=== PATIENT | female | born 1940 | race Caucasian/White ===

== ENCOUNTER 2019-02-04 14:44 | Inpatient (IN) | payer MEDICARE, OTHER | END 2019-02-09 12:05 | disposition home or self-care (01) | LOC: TELE-WESTW 20:47 → ER 14:44 → TELE 20:05 → TELE-WESTW 20:49 | DX: I21.4 Non-ST elevation (NSTEMI) myocardial infarction (principal); I50.43 Acute on chronic combined systolic (congestive) and diastolic (congestive) heart failure; N39.0 Urinary tract infection, site not specified; E44.1 Mild protein-calorie malnutrition; R07.2 Precordial pain; I25.10 Atherosclerotic heart disease of native coronary artery without angina pectoris; Z95.1 Presence of aortocoronary bypass graft; I11.0 Hypertensive heart disease with heart failure ==

== ENCOUNTER 2019-02-15 10:00 | Inpatient (IN) | payer MEDICARE ==
[~2019-02-15] VITALS: Ht 157.5 cm; Wt 56.9 kg
[2019-02-15] MEDS ORDERED: FUROSEMIDE 20 MG/2 ML VIAL IV ONE ×2 (10:45→22:00)
[2019-02-15 10:49] LABS: Basophils # (auto) 0 uL; Eosinophils # (auto) 0 uL; Monocytes # (auto) 0.6 uL; White Blood Cell 5.9 10^3/uL (4.4-10.8)
[2019-02-15 10:50] LABS: Basophils % (auto) 0.6 % (0.0-2.0); Eosinophils % (auto) 0.4 % (0.0-7.0); Hematocrit 29.3 % (36.0-46.0); Hemoglobin 9.5 g/dL (12.2-16.2); Lymphocytes # (auto) 1.4 uL; Lymphocytes % (auto) 23.1 % (10.0-50.0); Mean Corpuscular Hemoglobin 26.4 pg (28.0-32.0); Mean Corpuscular Hgb Conc. 32.3 g/dL (32.0-36.0); Mean Corpuscular Volume 81.7 fL (80.0-100.0); Monocytes % (auto) 9.8 % (0.0-12.0); Neutrophils # (auto) 3.9 uL; Neutrophils % (auto) 66.1 % (37.0-80.0); Nucleated Red Blood Cells % 0.2 %; Platelet Count (auto) 249 10^3/uL (140-450); Red Blood Cells 3.58 10^6/uL (4.0-5.20); Red Cell Distribution Width 17.7 % (11.8-14.3)
[2019-02-15 11:09] LABS: Calcium 8.2 mg/dL (8.5-10.1); Magnesium 2.3 mg/dL (1.6-2.6)
[2019-02-15 11:16] LABS: BUN/Creatinine Ratio 20.2; Bilirubin, Total 0.4 mg/dL (0.2-1.0); Total Protein 8.1 g/dL (6.4-8.2)
[2019-02-15] MEDS ORDERED: ACETAMINOPHEN 325 MG TAB PO PRN (13:00)
[2019-02-15] MEDS ORDERED: MORPHINE SULF INJ 2 MG/ML SYRINGE 1ML IV PRN ×2 (13:00)
[2019-02-15] MEDS ORDERED: ONDANSETRON HCL 4 MG/2 ML VIAL IV PRN (13:00)
[2019-02-15] MEDS ORDERED: NITROGLYCERIN 0.4 MG SL TAB SL PRN (13:00)
[2019-02-15] MEDS ORDERED: CARVEDILOL 3.125 MG TAB PO SCH (17:45)
[2019-02-15 18:36] VITALS: BP 99/64
[2019-02-15] MEDS ORDERED: POTA20TA53 PO (19:03)
[2019-02-15] MEDS ORDERED: FURO20TA3 PO (19:03)
[2019-02-15 19:05] VITALS: BP 99/64
--- NOTE | 2019-02-15 19:10 | NUR ---
Opening Shift Note Received change of shift report from day shift RN Jose Miguel. Assumed care of pt, awake and alert x4, sitting up in bed watching television. No S/S of distress or SOB, no pain noted or reported at this time. Respirations are even and unlabored. Updated pt. on POC and instructed to call for assistance as needed, pt. verbalized understanding. Bed locked in lowest position, side rails up x2, call light within reach. Will continue to monitor q1hr and PRN.
[2019-02-15 20:52] LABS: Urine Bacteria FEW /hpf (None Seen); Urine Blood 2+ /uL (Negative); Urine Hyaline Cast FEW /lpf (0 - 2); Urine Mucus FEW (None Seen); Urine Specific Gravity 1.012 (1.001-1.035); Urine WBC Clumps PRESENT /hpf (None Seen)
[2019-02-15 20:53] LABS: Urine WBC 400 /hpf (0 - 5)
[2019-02-15 22:00] VITALS: BP 111/68
[2019-02-15] MEDS ORDERED: POTASSIUM CHL 20 Meq TABLET PO ONE (22:00)
[2019-02-16 05:30] VITALS: BP 113/77
[2019-02-16 06:58] LABS: Basophils # (auto) 0 uL; Basophils % (auto) 0.8 % (0.0-2.0); Eosinophils # (auto) 0 uL; Eosinophils % (auto) 0.8 % (0.0-7.0); Hematocrit 28.3 % (36.0-46.0); Hemoglobin 9.2 g/dL (12.2-16.2); Lymphocytes # (auto) 1.4 uL; Lymphocytes % (auto) 26.3 % (10.0-50.0); Mean Corpuscular Hemoglobin 26.3 pg (28.0-32.0); Mean Corpuscular Hgb Conc. 32.3 g/dL (32.0-36.0); Mean Corpuscular Volume 81.3 fL (80.0-100.0); Monocytes # (auto) 0.5 uL; Monocytes % (auto) 8.9 % (0.0-12.0); Neutrophils # (auto) 3.4 uL; Neutrophils % (auto) 63.2 % (37.0-80.0); Platelet Count (auto) 226 10^3/uL (140-450); Red Blood Cells 3.49 10^6/uL (4.0-5.20); Red Cell Distribution Width 17.1 % (11.8-14.3); White Blood Cell 5.4 10^3/uL (4.4-10.8)
[2019-02-16 07:16] LABS: Calcium 8.1 mg/dL (8.5-10.1); Potassium 4.9 mmol/L (3.5-5.1)
[2019-02-16 07:22] LABS: Albumin 2.9 g/dL (3.4-5.0); Bilirubin, Total 0.6 mg/dL (0.2-1.0); Total Protein 7.7 g/dL (6.4-8.2)
--- NOTE | 2019-02-16 07:57 | NUR ---
Called electromechanical technician and left a message regarding Dr. Ortiz's request to do the ECHO today. Put in a STAT request for ECHO. Also contacted [employer] community development technician at [phone], left a message regarding Dr. Ortiz's request to check patient's pacemaker today. Also put in an order for BNP per MD's request.
[2019-02-16 08:00] VITALS: BP 108/69
[2019-02-16] MEDS ORDERED: OPTISON 3ml Vial for INJ IV ONE (09:35)
[2019-02-16] MEDS: ENALAPRIL MALEATE 2.5 MG TAB PO SCH (10:00)
[2019-02-16] MEDS ORDERED: ASPirin 81 mg TAB PO ONE (10:00)
[2019-02-16 12:00] VITALS: BP 100/67
[2019-02-16 17:00] VITALS: BP 107/69
--- NOTE | 2019-02-16 19:00 | NUR ---
Closing Note Patient is resting in bed, no signs of distress, no SOB. Call light within reach and bed in lowest position. Care endorsed to night RN.
--- NOTE | 2019-02-16 19:10 | NUR ---
Opening Shift Note Assumed care of pt, awake and alert x4, resting in bed. No S/S of distress or SOB, no pain noted or reported at this time. Respirations are even and unlabored on RA. Updated pt. on POC and instructed to call for assistance as needed, pt. verbalized understanding. Bed locked in lowest position, side rails up x2, call light within reach. Will continue to monitor q1hr and PRN.
--- NOTE | 2019-02-16 19:28 | NUR ---
Paged Dr. Patterson Regarding continuation of Lasix and Potassium. Will wait for new orders.
--- NOTE | 2019-02-16 19:31 | NUR ---
Spoke with Dr. Patterson Received medication orders. Will input and follow through with new orders.
--- NOTE | 2019-02-16 20:00 | NUR ---
Paged Dr. Patterson Regarding indication for Eliquis order.
[2019-02-16 22:00] VITALS: BP 111/71
[2019-02-16] MEDS: APIXABAN 5 MG TAB PO SCH (22:02)
[2019-02-16] MEDS: POTASSIUM CHL 20 Meq TABLET PO SCH (22:02)
[2019-02-16] MEDS: FUROSEMIDE 20 MG/2 ML VIAL IV SCH (22:02)
[2019-02-17 05:00] VITALS: BP 118/76
[2019-02-17] MEDS: FUROSEMIDE 20 MG/2 ML VIAL IV SCH ×2 (05:56→18:16)
--- NOTE | 2019-02-17 06:56 | NUR ---
CLOSING NOTE CARE ENDORSED TO GEAR SHAVER SET UP OPERATOR RN. NO S/S OF DISTRESS. BED IN LOW LOCK POSITION, CALL LIGHT IN REACH.
[2019-02-17 07:11] LABS: Basophils # (auto) 0 uL; Basophils % (auto) 0.6 % (0.0-2.0); Eosinophils # (auto) 0 uL; Eosinophils % (auto) 0.2 % (0.0-7.0); Neutrophils # (auto) 3.9 uL; Nucleated Red Blood Cells % 0.1 %
[2019-02-17 07:15] LABS: Hemoglobin 9.4 g/dL (12.2-16.2); Lymphocytes # (auto) 1.3 uL; Lymphocytes % (auto) 22.2 % (10.0-50.0); Mean Corpuscular Hemoglobin 26.3 pg (28.0-32.0); Mean Corpuscular Hgb Conc. 32.5 g/dL (32.0-36.0); Monocytes # (auto) 0.5 uL; Monocytes % (auto) 9.5 % (0.0-12.0); Neutrophils % (auto) 67.5 % (37.0-80.0); Platelet Count (auto) 244 10^3/uL (140-450); Red Blood Cells 3.58 10^6/uL (4.0-5.20); Red Cell Distribution Width 16.9 % (11.8-14.3); White Blood Cell 5.7 10^3/uL (4.4-10.8)
[2019-02-17 07:34] LABS: BUN/Creatinine Ratio 24.2; Calcium 8.2 mg/dL (8.5-10.1); Potassium 4.5 mmol/L (3.5-5.1)
[2019-02-17 08:00] VITALS: BP 118/76
--- NOTE | 2019-02-17 08:00 | NUR ---
ASSESSMENT NOTE PT IS ALERT ORIENTED X4, RESTING IN BED COMFORTABLY, CONTINUE COMPLAINING FROM GENERALIS WEAKNESS, ABLE TO VERBALIS HER DEMANDS, SELF REPOSITION, PAIN 0/10, CALL LIGHT WITHIN REACH. PT CONTINUE ON FALL RISK PRECAUTIONS.
[2019-02-17] MEDS: APIXABAN 5 MG TAB PO SCH (08:32)
[2019-02-17] MEDS: POTASSIUM CHL 20 Meq TABLET PO SCH ×2 (08:32→22:04)
[2019-02-17] MEDS: ENALAPRIL MALEATE 2.5 MG TAB PO SCH (08:33)
[2019-02-17] MEDS ORDERED: CLOP75TA28 PO (08:35)
[2019-02-17] MEDS ORDERED: ATOR20TA PO (08:37)
[2019-02-17 09:00] VITALS: BP 103/67
--- NOTE | 2019-02-17 10:00 | NUR ---
DR LOLI OLIVO AT BED SIDE FOLLOWING UP ON PT WITH NEW ORDERS
--- NOTE | 2019-02-17 11:50 | NUR ---
PT CONTINUE STABLE, RESTING COMFORTABLY IN BED, NO SHORTNESS OF BREATH NOTED, REPORT GIVEN TO SUMMER RN, CONTINUE CARE.
--- NOTE | 2019-02-17 12:00 | NUR ---
Opening Note Assumed care of patient. No signs or symptoms of distress noted at this time. Bed in low and locked position, call light within reach. Will continue to monitor Q1 hour and PRN.
[2019-02-17 13:00] VITALS: BP 101/65
[2019-02-17 17:40] VITALS: BP 106/64
--- NOTE | 2019-02-17 19:07 | NUR ---
Closing Note Report given to pharmacy resource tech RN. No signs or symptoms of distress noted at this time.
--- NOTE | 2019-02-17 19:30 | NUR ---
OPENING SHIFT NOTE ASSUMED CARE OF PATIENT FROM DAY SHIFT RN SUMMER. PATIENT IS A/OX4, DENIES ANY PAIN AT THIS TIME, AND HAS EVEN AND UNLABORED RESPIRATIONS. PACEMAKER DRESSING IS CLEAN DRY AND INTACT. SKIN AROUND SITE IS NORMAL COLOR BUT HAS MODERATE SWELLING. ICE APPLIED. PATIENT STATES THAT SHE STILL FEELS WEAK, BUT LESS THAN SHE DID. PATIENT CAN AMB TO THE BATHROOM WITH ASSIST AND CAN POSITION SELF. PATIENT IS SR IN THE 80'S AND HAS INTACT PULSES AND NORMAL SKIN COLOR. BED IS LOW, LOCKED, CALL LIGHT IS IN REACH. PATIENT INSTRUCTED ON POC AND TO CALL FOR ASSIST PRN. WILL CONTINUE TO MONITOR Q1HR AND PRN.
[2019-02-17 22:00] VITALS: BP 105/61
--- NOTE | 2019-02-17 22:55 | NUR ---
ABBY REMOVED PER YURIDIA REQUEST DR SHI CAME IN. PER DOCTOR REQUEST, RN TO REMOVE ABYB. DRESSING TO SITE WAS CLEAN, DRY, AND INTACT. INCISION SITE HAD NO REDNESS OR DRAINAGE. EDGES WELL APPROXIMATED. 10 ABBY REMOVED USING STERILE TECHNIQUE. PATIENT TOLERATED WELL.
[2019-02-18 04:46] VITALS: BP 110/62
[2019-02-18] MEDS: FUROSEMIDE 20 MG/2 ML VIAL IV SCH ×2 (06:16→17:43)
[2019-02-18 06:43] LABS: Calcium 8.4 mg/dL (8.5-10.1); Potassium 4.3 mmol/L (3.5-5.1)
--- NOTE | 2019-02-18 07:06 | NUR ---
Opening Note Received report from cook night RN. Patient is awake, alert and oriented x4. No signs or symptoms of distress noted at this time. Patient denies pain at this time. Patient is on room air, respirations even and unlabored. Dressing to left upper chest is clean, dry and intact. Patient has ice pack to area. Reviewed plan of care with patient, patient verbalized understanding. Bed in low and locked position, call light within reach. Will continue to monitor Q1 hour and PRN.
--- NOTE | 2019-02-18 07:10 | NUR ---
CARE TRANSFERRED TO DAY SHIFT RN SUMMER
[2019-02-18 08:00] VITALS: BP 111/68
[2019-02-18] MEDS: POTASSIUM CHL 20 Meq TABLET PO SCH ×2 (10:04→21:58)
[2019-02-18] MEDS: ENALAPRIL MALEATE 2.5 MG TAB PO SCH (10:05)
[2019-02-18] MEDS: CLOPIDOGREL BISULFATE 75 MG TAB PO SCH (10:05)
[2019-02-18] MEDS: SPIRONOLACTONE 25 MG TAB PO SCH (10:05)
--- NOTE | 2019-02-18 11:20 | NUR ---
Patient resting comfortably. No signs or symptoms of distress noted at this time. Will continue to monitor Q1 hour and PRN.
[2019-02-18 12:00] VITALS: BP 106/63
[2019-02-18 17:00] VITALS: BP 101/59
--- NOTE | 2019-02-18 18:40 | NUR ---
Rounds Patient awake, sitting up in bed. Patient requesting ice pack for left upper chest. Family at bedside.
--- NOTE | 2019-02-18 18:58 | NUR ---
Closing Note Report given to night custodian RN. No signs or symptoms of distress noted at this time.
--- NOTE | 2019-02-18 19:20 | NUR ---
OPENING SHIFT NOTE ASSUMED CARE OF PATIENT FROM DAY SHIFT RN SUMMER. PATIENT IS A/OX4, DENIES ANY PAIN AT THIS TIME, AND HAS EVEN AND UNLABORED RESPIRATIONS. PACEMAKER DRESSING IS CLEAN DRY AND INTACT. SKIN AROUND SITE IS NORMAL COLOR WITH MILD SWELLING TODAY. ICE IS CURRENTLY APPLIED TO SITE. BED IS LOW, LOCKED, CALL LIGHT IS IN REACH. PATIENT INSTRUCTED ON POC AND TO CALL FOR ASSIST PRN. WILL CONTINUE TO MONITOR Q1HR AND PRN.
[2019-02-18 22:43] VITALS: BP 101/58
[2019-02-19] VITALS (7 sets, daily range): BP systolic 100–115; BP diastolic 53–64
[2019-02-19] MEDS: FUROSEMIDE 20 MG/2 ML VIAL IV SCH ×2 (05:54→18:28)
[2019-02-19 06:43] LABS: Albumin 2.7 g/dL (3.4-5.0); Potassium 4.6 mmol/L (3.5-5.1)
[2019-02-19 06:45] LABS: BUN/Creatinine Ratio 29.7
[2019-02-19 06:48] LABS: Bilirubin, Total 0.6 mg/dL (0.2-1.0); Total Protein 7.4 g/dL (6.4-8.2)
--- NOTE | 2019-02-19 06:49 | NUR ---
IV insertion and DC IV access obtained, via clean sterile technique by inserting 22 gauge catheter at after 1 attempt in left wrist. IV secured properly. No trauma to site. Patient tolerated well. 22 gauge IV in left hand was leaking, DC'd with clean sterile technique, catheter fully intact. Pressure dressing applied to site. Patient tolerated well.
[2019-02-19] MEDS: ENALAPRIL MALEATE 2.5 MG TAB PO SCH (10:24)
[2019-02-19] MEDS: SPIRONOLACTONE 25 MG TAB PO SCH (10:24)
[2019-02-19] MEDS: CLOPIDOGREL BISULFATE 75 MG TAB PO SCH (10:24)
[2019-02-19] MEDS: POTASSIUM CHL 20 Meq TABLET PO SCH ×2 (10:24→22:01)
--- NOTE | 2019-02-19 11:48 | NUR ---
assessment Per ss consult [facility] consult for rehab. Patient is a 78 year old female who is alert and oriented. Patient lives home alone. Per PT tiffanie recommends rehab. Patient agrees to [facility]. MD order has been sent to [facility]. Waiting for reply back now. Addendum: 02/19/19 at 1151 by Nia Gustafson Amended: Links added.
--- NOTE | 2019-02-19 20:00 | NUR ---
Opening Shift Note Assumed care of patient, awake and alert. No S/S of distress/SOB or pain. Instructed on POC and to call for assist PRN, will continue to monitor for changes Q1hr and PRN.Told to the patient that she might go to [facility] tomorrow once the social media developer arrange it .
[2019-02-20 05:26] VITALS: BP 102/55
[2019-02-20] MEDS: FUROSEMIDE 20 MG/2 ML VIAL IV SCH (05:30)
--- NOTE | 2019-02-20 07:36 | NUR ---
Report given to Barrera French to assume care, patient is resting no distress.
[2019-02-20 08:00] VITALS: BP 92/51
[2019-02-20 08:21] LABS: INR 1.07 (0.9-1.15); Partial Thromboplastin Time 27.1 sec (23.64-32.05); Prothrombin Time 11.5 sec (9.06-12.60)
[2019-02-20 09:03] VITALS: BP 92/51
[2019-02-20] MEDS: POTASSIUM CHL 20 Meq TABLET PO SCH (09:36)
[2019-02-20] MEDS: SPIRONOLACTONE 25 MG TAB PO SCH (09:36)
[2019-02-20] MEDS: CLOPIDOGREL BISULFATE 75 MG TAB PO SCH (09:36)
[2019-02-20] MEDS: ENALAPRIL MALEATE 2.5 MG TAB PO SCH (09:36)
--- NOTE | 2019-02-20 11:53 | NUR ---
re-assessment Per Ysabel at [facility] patient is accepted to room [address] Carbajal is the accepting MD. Patients daughter Dian will transport. Patient and Dian agree to discharge plan to [facility]. Addendum: 02/20/19 at 1354 by Nia ELIAS Amended: Links added.
--- NOTE | 2019-02-20 13:43 | NUR ---
Discharge instructions given as ordered. Encourage to follow up with PMD as instructed. All questions and concerns addressed. Patient verbalized understanding. Medication reconciliation form completed and copy given to patient. Home medications held in Pharmacy returned to patient, and needed vaccines given. IV removed with catheter intact, pressure dressing applied. Telemetry unit returned to ICU. Patient taken to vehicle via wheelchair with all personal belongings, accompanied by staff and family member. No distress noted at time of departure.
[2019-02-20 13:47] VITALS: BP 99/56
== END 2019-02-20 13:50 | DRG 314 ==
LOC: ER 10:02 → TELE 13:05 → TELE-EAST 18:27
PROVIDERS: ADMIT Internal Medicine; ATTEND Internal Medicine
DX: I42.9 Cardiomyopathy, unspecified (principal); E43 Unspecified severe protein-calorie malnutrition; E87.1 Hypo-osmolality and hyponatremia; I50.9 Heart failure, unspecified; D64.9 Anemia, unspecified; N18.3 Chronic kidney disease, stage 3 (moderate); I34.0 Nonrheumatic mitral (valve) insufficiency; I25.10 Atherosclerotic heart disease of native coronary artery without angina pectoris; Z82.49 Family history of ischemic heart disease and other diseases of the circulatory system; Z83.3 Family history of diabetes mellitus; Z86.73 Personal history of transient ischemic attack (TIA), and cerebral infarction without residual deficits; Z87.440 Personal history of urinary (tract) infections; Z95.1 Presence of aortocoronary bypass graft; Z95.810 Presence of automatic (implantable) cardiac defibrillator; Z68.22 Body mass index [BMI] 22.0-22.9, adult
CPT/HCPCS: 36415; 71045; 80048; 80053; 81001; 83735; 83880; 84484; 85025; 85610; 85730; 87081; 93005; 93306; 94761; 96374; 96375; 97116; 97530; G0378; Q9956

== ENCOUNTER 2019-07-12 10:30 | Inpatient (IN) | payer MEDICARE, OTHER ==
[~2019-07-12] VITALS: Ht 157.5 cm; Wt 56.8 kg
[~2019-07-12 10:30] MED LIST: CLOP75TA28 PO; ENAL2.5T PO; FURO20TA3 PO; POTA-220 PO; SPIR25TA8 PO
--- NOTE | 2019-07-12 10:45 | NUR ---
Direct Admit Note TAHAMILTON admitted to Telemetry/MS unit as a direct admit per MD order. Patient oriented to Ana Paula Hodges, RN primary RN, unit, room, bed, and unit policies regarding patient care and visiting hours. Patient now on continuous telemetry monitoring, tele box # and telemetry reading on arrival to unit is . Patient placed on bedside oxygen, weighed by bedscale and encouraged to call if they need something. All questions and concerns addressed, patient verbalized understanding. MD notified of patients arrival and admit orders received.
--- NOTE | 2019-07-12 10:52 | NUR ---
Called Dr. Cindy Patterson for admission orders. Message left for him to return call.
--- NOTE | 2019-07-12 11:31 | NUR ---
IV insertion IV access obtained, via clean sterile technique by inserting 22 gauge catheter at right forearm after 1 attempt. IV secured properly. No trauma to site. Patient tolerated procedure well.
--- NOTE | 2019-07-12 11:54 | NUR ---
Patient informed that we are waiting for admission orders from Dr. Cidny Patterson. Patient states understanding. Will continue to monitor.
[2019-07-12] MEDS ORDERED: NITROGLYCERIN 0.4 MG SL TAB SL PRN (12:15)
[2019-07-12] MEDS ORDERED: MORPHINE SULF INJ 2 MG/ML SYRINGE 1ML IV PRN (12:15)
[2019-07-12] MEDS ORDERED: ONDANSETRON HCL 4 MG/2 ML VIAL IV PRN (12:30)
[2019-07-12] MEDS ORDERED: ACETAMINOPHEN 325 MG TAB PO PRN (12:30)
--- NOTE | 2019-07-12 12:47 | NUR ---
Orders received from Dr. Cindy Patterson. Patient refusing thorne catheter at this time. She states she can walk to the bathroom.
[2019-07-12 12:49] LABS: Hemoglobin 9.1 g/dL (12.2-16.2); Mean Corpuscular Volume 72.2 fL (80.0-100.0); White Blood Cell 4.3 10^3/uL (4.4-10.8)
[2019-07-12 12:51] LABS: Hematocrit 29.6 % (36.0-46.0); Mean Corpuscular Hemoglobin 22.2 pg (28.0-32.0); Mean Corpuscular Hgb Conc. 30.7 g/dL (32.0-36.0); Platelet Count (auto) 128 10^3/uL (140-450)
[2019-07-12 13:00] VITALS: BP 105/67
[2019-07-12 13:08] LABS: Red Cell Distribution Width 22.8 % (11.8-14.3)
[2019-07-12 13:09] LABS: Basophils % (manual) 0 (0.0-2.0); Blast Cells 0; Eosinophils % (manual) 0 (0-7); Metamyelocytes % 0; Myelocytes % 0; Promyelocytes % 0; Reactive Lymphocytes 0
[2019-07-12 13:10] LABS: Albumin 2.8 g/dL (3.4-5.0); BUN/Creatinine Ratio 26.1; Calcium 8.7 mg/dL (8.5-10.1)
[2019-07-12 13:15] LABS: Bilirubin, Total 2.9 mg/dL (0.2-1.0); Total Protein 7.5 g/dL (6.4-8.2)
[2019-07-12 13:25] LABS: Potassium 5.7 mmol/L (3.5-5.1)
--- NOTE | 2019-07-12 13:37 | NUR ---
Dr. Cindy Mcphersonod in to see patient. He was informed of potassium level of 5.7.
[2019-07-12] MEDS ORDERED: cefTRIAXone 1GM/50ML D5W 50 ML IV ONE (13:45)
[2019-07-12 13:54] LABS: Band Neutrophils % (manual) 4; Lymphocytes % (manual) 16 (10.0-50.0); Monocytes % (manual) 9 (0-12)
--- NOTE | 2019-07-12 15:07 | NUR ---
IV insertion IV access obtained, via clean sterile technique by inserting 22 gauge catheter at right inner forearm after 1 attempt. IV secured properly. No trauma to site. Patient tolerated procedure well.
--- NOTE | 2019-07-12 15:08 | NUR ---
Thorne catheter insertion Patient assessed and determined to be in need of thorne catheter. Order obtained from MD. Patient educated on catheter and reason for insertion. All questions answered. Thorne catheter 16 guage Y[place]ut inserted with clean sterile technique. Patient tolerated well.
[2019-07-12 15:37] VITALS: BP 105/67
[2019-07-12] MEDS: FUROSEMIDE INJECTION 250 MG in SODIUM CHL 0.9% 225 ML IV SCH (16:02)
--- NOTE | 2019-07-12 16:45 | NUR ---
PATIENT REQUESTED THAT P.T. EVALUATION BE DONE TOMORROW.
[2019-07-12] MEDS: DOBUTamine 1000MCG/ML 250 ML IV SCH (17:15)
[2019-07-12 17:22] VITALS: BP 98/63
[2019-07-12] MEDS ORDERED: SPIRONOLACTONE 25 MG TAB PO SCH (18:00)
[2019-07-12] MEDS ORDERED: FUROSEMIDE 40 MG/4 ML VIAL IV SCH (18:00)
[2019-07-12 22:00] VITALS: BP 101/52
[2019-07-12] MEDS ORDERED: POTASSIUM CHL 20 Meq TABLET PO SCH (22:00)
[2019-07-12] MEDS: MORPHINE SULF INJ 2 MG/ML SYRINGE 1ML IV PRN (23:10)
--- NOTE | 2019-07-13 02:30 | NUR ---
4 BEATS OF VTACH PATIENT DOES HAVE AICD PACEMAKER PATIENT HAD 4 BEATS OF VTACH NONSUSTANING. PATIENT HAS NO COMPLAINTS OF PAIN OR ANY DISCOMFORT. LEADS WERE CHECKED AND CHANGED. WILL INFORM PROVIDER. AWAITING CALL BACK.
[2019-07-13] MEDS: MORPHINE SULF INJ 2 MG/ML SYRINGE 1ML IV PRN ×2 (04:22→06:16)
[2019-07-13 05:00] VITALS: BP 101/55
[2019-07-13] MEDS: DOBUTamine 1000MCG/ML 250 ML IV SCH ×2 (05:17→17:44)
[2019-07-13 06:33] LABS: BUN/Creatinine Ratio 29.5; Potassium 3.6 mmol/L (3.5-5.1)
--- NOTE | 2019-07-13 08:00 | NUR ---
RECEIVED PATIENT ALERT AND ORIENTED X4, NOT IN DISTRESS, LS CLEAR IN BILATERAL UPPER AND DIMINISHED IN LOWER LUNG LOBES, RR=18 SAT=94% IN RA, DEEP BREATHING AND COUGHING ENCOURAGED, DEMONSTRATED UNDERSTANDING, HEART V PACE BEATS R=74 ON TELE MONITOR, ABDOMEN SOFT AND FLAT WITH ACTIVE BS, LAST BM=07/11/19 REPORTED, CASSIDY CATH IN PLACE AND PATENT, DRAINING CLOUDY YELLOW URINE, SKIN INTACT WARM TO TOUCH, +1 EDEMA ON BILATERAL LOWER EXTREMITIES NOTED, RADIAL AND PEDAL PULSES PALPABLE, CAP REFILL<3 SECONDS, ON AIR MATTRESS, HEAD OF BED ELEVATED, BED ON LOW POSITION, RAILS UP X2, CALL LIGHT ON REACH, PENDING PT EVALUATION, WILL CONTINUE MONITORING.
[2019-07-13 09:00] VITALS: BP 102/60
[2019-07-13] MEDS ORDERED: ENALAPRIL MALEATE 2.5 MG TAB PO SCH (10:00)
[2019-07-13] MEDS: cefTRIAXone 1GM/50ML D5W 50 ML IV SCH (10:16)
[2019-07-13] MEDS: CLOPIDOGREL BISULFATE 75 MG TAB PO SCH (10:17)
[2019-07-13] MEDS: POTASSIUM CHL 20 Meq TABLET PO SCH ×2 (10:17→21:12)
[2019-07-13 13:00] VITALS: BP 92/68
--- NOTE | 2019-07-13 14:05 | NUR ---
RESTING ON BED, WATCHING TV, NOT IN DISTRESS, DENIED PAIN, WILL CONTINUE MONITORING.
--- NOTE | 2019-07-13 14:06 | NUR ---
PHARMACY WAS CONTACTED FOR LASIX IV DRIP MEDICATION FOLLOW UP, MEDICATION WILL BE TUBED REPORTED, WAITING FOR THE MEDICATION FROM PHARMACY, WILL CONTINUE MONITORING.
[2019-07-13] MEDS: FUROSEMIDE INJECTION 250 MG in SODIUM CHL 0.9% 225 ML IV SCH (15:02)
[2019-07-13 17:00] VITALS: BP 92/54
[2019-07-13] MEDS: SPIRONOLACTONE 25 MG TAB PO SCH (17:45)
--- NOTE | 2019-07-13 19:52 | NUR ---
NOT IN DISTRESS, DENIED PAIN, RESTING ON BED, REPORT WAS GIVEN TO THE REPLANTING MACHINE CREWMAN RN.
[2019-07-13 22:00] VITALS: BP 92/44
--- NOTE | 2019-07-14 00:21 | NUR ---
RUN OF VTACH PATIENT HAD SEVERAL BEATS OF VTACH YET NONSUSTAINING. PATIENT WENT BACK TO [facility] THE [facility]. PATIENT DOES HAVE AICD PACEMACKER. CARDIO IS AWARE. WILL CONTINUE TO MONITOR PATIENT.
[2019-07-14 05:00] VITALS: BP 113/55
[2019-07-14] MEDS: SPIRONOLACTONE 25 MG TAB PO SCH ×2 (05:40→17:52)
[2019-07-14 05:48] LABS: Mean Corpuscular Hemoglobin 22.4 pg (28.0-32.0)
[2019-07-14 05:50] LABS: Albumin 2.5 g/dL (3.4-5.0); Calcium 7.7 mg/dL (8.5-10.1); Hematocrit 25.8 % (36.0-46.0); Hemoglobin 8.2 g/dL (12.2-16.2); Magnesium 1.8 mg/dL (1.6-2.6); Mean Corpuscular Hgb Conc. 31.6 g/dL (32.0-36.0); Platelet Count (auto) 118 10^3/uL (140-450); Potassium 3.8 mmol/L (3.5-5.1); Red Blood Cells 3.63 10^6/uL (4.0-5.20); White Blood Cell 5.3 10^3/uL (4.4-10.8)
[2019-07-14 05:52] LABS: Red Cell Distribution Width 22.4 % (11.8-14.3)
[2019-07-14 05:53] LABS: Basophils % (manual) 0 (0.0-2.0); Blast Cells 0; Metamyelocytes % 0; Myelocytes % 0; Promyelocytes % 0; Reactive Lymphocytes 0
[2019-07-14 05:54] LABS: BUN/Creatinine Ratio 27.1; Bilirubin, Total 1.6 mg/dL (0.2-1.0); Total Protein 6.6 g/dL (6.4-8.2)
[2019-07-14 08:00] VITALS: BP 96/52
[2019-07-14] MEDS: DOBUTamine 1000MCG/ML 250 ML IV SCH (08:02)
[2019-07-14 08:37] LABS: Band Neutrophils % (manual) 1; Eosinophils % (manual) 2 (0-7); Lymphocytes % (manual) 11 (10.0-50.0); Monocytes % (manual) 5 (0-12)
--- NOTE | 2019-07-14 09:11 | NUR ---
IV insertion IV access obtained, via clean sterile technique by inserting 22 gauge catheter at right inner forearm after 2 attempts. IV secured properly. No trauma to site. Patient tolerated procedure well.
[2019-07-14] MEDS: cefTRIAXone 1GM/50ML D5W 50 ML IV SCH (10:00)
[2019-07-14] MEDS: POTASSIUM CHL 20 Meq TABLET PO SCH ×2 (10:01→21:34)
[2019-07-14] MEDS: CLOPIDOGREL BISULFATE 75 MG TAB PO SCH (10:01)
--- NOTE | 2019-07-14 10:15 | NUR ---
Dr. Cindy Patterson in to see patient.
[2019-07-14 12:00] VITALS: BP 90/63
--- NOTE | 2019-07-14 12:17 | NUR ---
Nutrition Assessment Notes please see attached link for complete assessment Est. Needs BW [id number] kcal (25-30 kcal/kgBW), 48-60 gms pro (0.8-1.0 gms/kgBW r/t elev RFT). Will continue to monitor pertinent labs and reassess nutrient need prn Addendum: 07/14/19 at [address] Amended: Links added.
[2019-07-14] MEDS: FUROSEMIDE INJECTION 250 MG in SODIUM CHL 0.9% 225 ML IV SCH (13:42)
[2019-07-14 17:14] VITALS: BP 103/57
--- NOTE | 2019-07-14 19:20 | NUR ---
Opening Shift Note Assumed care of patient, awake and alert. No S/S of distress/SOB or pain. Safety measures in place bed in lowest position, side rails x2, and call light within reach. Instructed on POC and to call for assist PRN, will continue to monitor for changes Q1hr and PRN.
[2019-07-14 21:18] VITALS: BP 106/50
[2019-07-15] MEDS: DOBUTamine 1000MCG/ML 250 ML IV SCH (00:40)
[2019-07-15 04:10] VITALS: BP 117/63
[2019-07-15] MEDS: SPIRONOLACTONE 25 MG TAB PO SCH ×2 (06:20→17:37)
[2019-07-15 06:31] LABS: Albumin 2.8 g/dL (3.4-5.0); Calcium 7.7 mg/dL (8.5-10.1)
[2019-07-15 06:36] LABS: BUN/Creatinine Ratio 23.5; Bilirubin, Total 1.5 mg/dL (0.2-1.0); Total Protein 6.8 g/dL (6.4-8.2)
[2019-07-15 06:41] LABS: Potassium 2.9 mmol/L (3.5-5.1)
--- NOTE | 2019-07-15 06:45 | NUR ---
Critical Lab Received a call from Miguelina in the lab with a critical low potassium of 2.9, left a message with Dr. Patterson's answering service, awaiting a response. Will continue to monitor.
--- NOTE | 2019-07-15 07:06 | NUR ---
Notified and endorsed care to oncoming nurse pertaining to critical potassium of 2.90. Nurse informed that Dr. Patterson was paged and awaiting orders.
--- NOTE | 2019-07-15 07:20 | NUR ---
Return call from Dr. Cindy Patterson. He was updated on patient's potassium level. New orders received.
--- NOTE | 2019-07-15 07:25 | NUR ---
Serum magnesium ordered. Per Dr. Cindy Patterson, give 2 mag riders if mag level low.
[2019-07-15] MEDS ORDERED: POTASSIUM CHLORIDE 40 MEQ, LIDOCAINE 1% (LOCAL ANESTH.) 4 ML in SODIUM CHL 0.9% 100 ML IV ONE (07:30)
--- NOTE | 2019-07-15 07:30 | NUR ---
Opening Shift Note Assumed care of patient, awake and alert. No S/S of distress/SOB or pain. Instructed on POC and to call for assist PRN, will continue to monitor for changes Q1hr and PRN.
--- NOTE | 2019-07-15 07:47 | NUR ---
Mag level 1.6.
[2019-07-15 08:00] VITALS: BP_SYST 109; BP_SYST 154; BP_DIAS 50; BP_DIAS 88
[2019-07-15] MEDS: cefTRIAXone 1GM/50ML D5W 50 ML IV SCH (08:25)
[2019-07-15] MEDS: CLOPIDOGREL BISULFATE 75 MG TAB PO SCH (09:06)
[2019-07-15] MEDS: POTASSIUM CHL 20 Meq TABLET PO SCH ×2 (09:06→22:19)
--- NOTE | 2019-07-15 09:30 | NUR ---
Ambulated by PT in peralta with walker.
[2019-07-15] MEDS ORDERED: POTASSIUM CHL 20 Meq TABLET PO ONE (11:15)
--- NOTE | 2019-07-15 11:51 | NUR ---
Patient's right inner arm at elbow reddened and swollen. Skin tender to touch. IV x 2 removed with tips intact. A skin tear resulted from tape removal. Placed call to Pharmacy to see if any intervention is needed as one IV was Lasix drip and one IV was Dobutrex drip. waterway traffic checker, Devan figueroa.
[2019-07-15 12:00] VITALS: BP 97/61
--- NOTE | 2019-07-15 12:20 | NUR ---
Dr. Salmeron informed of IV infiltration, possibly dobutamine. Per Dr. Salmeron, no intervention needed. Will continue to monitor.
--- NOTE | 2019-07-15 12:45 | NUR ---
Orders received to discontinue Dobutamine drip.
--- NOTE | 2019-07-15 13:30 | NUR ---
Dr. Cindy Patterson in to see patient as primary MD. Dr. Patterson informed of the IV infiltration.
--- NOTE | 2019-07-15 16:00 | NUR ---
Photos taken of right arm. Wound consult entered in computer. Skin tear to right forearm cleaned with normal saline. Vaseline gauze placed over area, Kerlix wrap.
[2019-07-15 17:00] VITALS: BP 95/56
--- NOTE | 2019-07-15 18:17 | NUR ---
Right forearm edema decreased. Skin slightly reddened, area slightly tender to touch. Will continue to monitor.
--- NOTE | 2019-07-15 19:30 | NUR ---
Opening Shift Note Assumed care of patient, awake and alert. No S/S of distress/SOB. Right arm swelling has decreased patient states arm is just mildly uncomfortable, not requiring anything for pain. Safety measures in place bed in lowest position, side rails x2 up, and call light within reach. Instructed on POC and to call for assist PRN, will continue to monitor for changes Q1hr and PRN.
[2019-07-15 21:30] VITALS: BP 93/54
[2019-07-16 05:00] VITALS: BP 103/64
[2019-07-16] MEDS: SPIRONOLACTONE 25 MG TAB PO SCH ×2 (06:10→18:21)
[2019-07-16 07:00] LABS: Albumin 2.6 g/dL (3.4-5.0); BUN/Creatinine Ratio 24.1; Calcium 8.1 mg/dL (8.5-10.1); Magnesium 1.8 mg/dL (1.6-2.6); Potassium 4.5 mmol/L (3.5-5.1)
--- NOTE | 2019-07-16 07:02 | NUR ---
Assessed right arm swelling with NOC nurse. NOC nurse states swelling has gone down and patient states "it is better, not as sore." Will continue to monitor patient Q1HR.
[2019-07-16 07:03] LABS: Bilirubin, Total 1.7 mg/dL (0.2-1.0); Total Protein 7.1 g/dL (6.4-8.2)
[2019-07-16 07:18] LABS: Basophils # (auto) 0 uL; Basophils % (auto) 0.2 % (0.0-2.0); Eosinophils # (auto) 0 uL; Eosinophils % (auto) 0.3 % (0.0-7.0); Hematocrit 29.2 % (36.0-46.0); Hemoglobin 9.1 g/dL (12.2-16.2); Lymphocytes # (auto) 0.7 uL; Lymphocytes % (auto) 12.1 % (10.0-50.0); Mean Corpuscular Hemoglobin 22.1 pg (28.0-32.0); Mean Corpuscular Hgb Conc. 31.1 g/dL (32.0-36.0); Mean Corpuscular Volume 71.2 fL (80.0-100.0); Monocytes # (auto) 0.6 uL; Monocytes % (auto) 9.8 % (0.0-12.0); Neutrophils # (auto) 4.4 uL; Neutrophils % (auto) 77.6 % (37.0-80.0); Nucleated Red Blood Cells % 0.7 %; Platelet Count (auto) 125 10^3/uL (140-450); Red Blood Cells 4.11 10^6/uL (4.0-5.20); White Blood Cell 5.7 10^3/uL (4.4-10.8)
[2019-07-16 07:20] LABS: Red Cell Distribution Width 23.5 % (11.8-14.3)
--- NOTE | 2019-07-16 07:33 | NUR ---
Opening Shift Note Assumed care of patient, awake and alert. No S/S of distress/SOB or pain. Bed in lowest locked position, side rails up x 2, call light within reach. Patient instructed on POC and to call for assist PRN, will continue to monitor for changes Q1hr and PRN.
[2019-07-16 08:00] VITALS: BP 105/68
[2019-07-16] MEDS: cefTRIAXone 1GM/50ML D5W 50 ML IV SCH (10:10)
[2019-07-16] MEDS: SACUBITRIL-VALSARTAN 24mg/26mg TAB PO SCH (10:11)
[2019-07-16] MEDS: TORSEMIDE 20 MG TAB PO SCH (10:11)
[2019-07-16] MEDS: POTASSIUM CHL 20 Meq TABLET PO SCH ×2 (10:11→21:45)
[2019-07-16] MEDS: CLOPIDOGREL BISULFATE 75 MG TAB PO SCH (10:12)
--- NOTE | 2019-07-16 11:00 | NUR ---
WOUND CARE NOTE: PATIENT ADMITTED TO [facility], WITH DIAGNOSIS OF CHF. WOUND PHOTO TAKEN AT THAT TIME BY BEDSIDE NURSE FOR REFERENCE. PATIENT ACQUIRED SKIN TEAR TO THE RIGHT FOREARM. BEDSIDE NURSE APPLIED THERAHONEY, OPTIFOAM GENTLE DRESSING PER MD ORDER. MILD ERYTHEMA TO THE RIGHT FOREARM, AFTER IV REMOVAL IS LESS RED, SKIN REMAINS INTACT, LEFT OPEN TO AIR. PERIANAL/INTRAGLUTEAL SKIN IS RED FROM MASD. PATIENT HAS HAD MULTIPLE EPISODES WITH LOOSE STOOLS. SKIN IS RED, BLANCHING. PATIENT WOUND BENEFIT FROM BID/PRN APPLICATION WITH CAVILON BARRIER FILM TO THE PERIANAL/INTRAGLUTEAL SKIN. RECOMMEND: EOD/PRN DRESSING CHANGE WITH THERAHONEY, OPTIFOAM GENTLE DRESSING TO SKIN TEAR ON RIGHT FOREARM, BID/PRN APPLICATION CAVILON BARRIER FILM, DIETARY CONSULT, CONTINUED MONITORING BY WOUND CARE TEAM. SKIN/WOUND CARE PLAN UPDATED. Addendum: 07/16/19 at 1741 by Chelly Scott RN Amended: Links added.
--- NOTE | 2019-07-16 11:59 | NUR ---
Wound care performed on right arm skin tear, honey and optifoam, per wound care nurse. Patient tolerated well. Will continue to monitor patient.
[2019-07-16 12:00] VITALS: BP 92/58
--- NOTE | 2019-07-16 12:34 | NUR ---
Dr. Patterson at bedside. Discussed POC with patient and family. Patient verbally agreed to plan. Will continue to monitor patient Q1HR
--- NOTE | 2019-07-16 13:50 | NUR ---
assessment Patient is a 78 year old female who is alert and oriented. Patients cognitive abilities are intact. Prior to admission patient lived home alone and functioned independently. Patient informed me she is able to care for her own ADLs. Per patient her PCP is Dr Sallie Patterson. Patient informed me she has good family support. Patient informed me she has been feeling weak lately. I informed patient Dr Patterson called me and informed me he has put in a consult for [facility]. Patient has agreed to [facility] and placement. I informed patient she has a right to speak to a public health social worker regarding all care. I informed patient she has a right to participate in any and all discharge planning. Patient has a POA and advanced directive. Patient verbalized understanding and agreed to discharge plan. Addendum: 07/17/19 at 1400 by Nia ELIAS Amended: Links added.
--- NOTE | 2019-07-16 16:51 | NUR ---
Patients B/P is 85/49. Patient encouraged to drink more fluids. Attempted to contact Dr. Patterson.
[2019-07-16 16:56] VITALS: BP 89/51
[2019-07-16] MEDS: FUROSEMIDE 40 MG/4 ML VIAL IV SCH (18:00)
--- NOTE | 2019-07-16 18:01 | NUR ---
Patient B/P is currently 81/47. Patient is A&O x 4. Lungs are clear. No distress noted at this time. Patient encouraged to drink fluids.
--- NOTE | 2019-07-16 18:05 | NUR ---
1800 lasix held due to low B/P.
--- NOTE | 2019-07-16 19:30 | NUR ---
Opening Shift Note Assumed care of patient, awake and alert. No S/S of distress/SOB or pain. Bed in lowest locked position, side rails up x 2, call light within pt's reach. Patient instructed on POC and to call for assist PRN. This RN will continue to monitor for changes Q1hr and PRN.
[2019-07-16 22:00] VITALS: BP 71/40
--- NOTE | 2019-07-17 02:57 | NUR ---
Pt expressing desire to get up into chair 2/2 tired of being in the bed. Reminded her it is "in the middle of the night and [she] may fall asleep". Pt decided she needed to try to have a bm. RN and RAD TECH assisted her to BR and back to bed after pt did have formed bm. Damp spot on bed; chux changed. This RN will monitor for poss of more output around F/C.
[2019-07-17 05:14] VITALS: BP 91/51
[2019-07-17] MEDS: FUROSEMIDE 40 MG/4 ML VIAL IV SCH ×2 (06:00→09:45)
[2019-07-17] MEDS: SPIRONOLACTONE 25 MG TAB PO SCH (06:00)
[2019-07-17 06:51] LABS: Albumin 2.4 g/dL (3.4-5.0); Calcium 7.9 mg/dL (8.5-10.1); Potassium 5.5 mmol/L (3.5-5.1)
[2019-07-17 06:56] LABS: BUN/Creatinine Ratio 21.3; Bilirubin, Total 1.8 mg/dL (0.2-1.0); Total Protein 7.1 g/dL (6.4-8.2)
[2019-07-17 07:11] LABS: Basophils # (auto) 0 uL; Eosinophils # (auto) 0 uL; Eosinophils % (auto) 0.5 % (0.0-7.0); Monocytes # (auto) 0.6 uL; White Blood Cell 5.6 10^3/uL (4.4-10.8)
[2019-07-17 07:15] LABS: Basophils % (auto) 0.3 % (0.0-2.0); Hematocrit 30.4 % (36.0-46.0); Hemoglobin 9.5 g/dL (12.2-16.2); Lymphocytes # (auto) 0.9 uL; Mean Corpuscular Hemoglobin 22.4 pg (28.0-32.0); Mean Corpuscular Hgb Conc. 31.1 g/dL (32.0-36.0); Mean Corpuscular Volume 71.9 fL (80.0-100.0); Monocytes % (auto) 10.1 % (0.0-12.0); Neutrophils # (auto) 4.1 uL; Neutrophils % (auto) 73.1 % (37.0-80.0); Nucleated Red Blood Cells % 1.4 %; Platelet Count (auto) 138 10^3/uL (140-450); Red Blood Cells 4.23 10^6/uL (4.0-5.20); Red Cell Distribution Width 23.3 % (11.8-14.3)
[2019-07-17 08:30] VITALS: BP 97/57
--- NOTE | 2019-07-17 09:00 | NUR ---
Spoke with Nia of case management, [facility] transfer is on process and representatives will come this morning to evaluate the patient.
[2019-07-17] MEDS: CLOPIDOGREL BISULFATE 75 MG TAB PO SCH (09:43)
[2019-07-17] MEDS: cefTRIAXone 1GM/50ML D5W 50 ML IV SCH (09:44)
--- NOTE | 2019-07-17 09:45 | NUR ---
Dr. Patterson at bedside, patient is advised. Latest sodium and potassium results made aware. Orders received.
[2019-07-17] MEDS ORDERED: SODIUM CHL 3% 500 ML IV ONE (10:00)
[2019-07-17] MEDS: TORSEMIDE 20 MG TAB PO SCH (10:00)
[2019-07-17] MEDS: SACUBITRIL-VALSARTAN 24mg/26mg TAB PO SCH (10:00)
--- NOTE | 2019-07-17 10:15 | NUR ---
[facility] Asked if she has any personal care assistant, patient stated she lives alone at home and no need to call anyone for notifications.
--- NOTE | 2019-07-17 10:20 | NUR ---
Per Dr. Patterson keep the Phillip catheter in place prior to transfer to [facility].
--- NOTE | 2019-07-17 11:00 | NUR ---
NaCl 3% IV administered.
[2019-07-17 11:03] VITALS: BP 97/57
[2019-07-17 12:30] VITALS: BP 91/57
[2019-07-17] MEDS ORDERED: INFLUENZA QUAD 2019-2020 0.5ml SYRG IM ONE (13:15)
--- NOTE | 2019-07-17 15:00 | NUR ---
Discharge instructions given as ordered. All questions and concerns addressed. Patient verbalized understanding. IV removed with catheter intact, pressure dressing applied, thorne catheter remained and connected to leg bag. Medication reconciliation form completed and copy given to patient. Needed vaccines given. Telemetry unit returned to ICU. [facility] transported by [facility] via gurney with all personal belongings. No distress noted at time of departure.
--- NOTE | 2019-07-17 15:42 | NUR ---
Received a call from Dr. Patterson verifying the time patient left for [facility] and also made him aware that Dr. Salmeron made the rounds to see the patient but already left for Rehab re: Na-[address] am[address] Dr. Patterson made aware that NaCl 3% was ordered earlier and that 200ml was administered prior to discharge.
--- NOTE | 2019-07-18 08:26 | NUR ---
[facility]:) Fax:) faxed medical records. Per Magy from [facility] Pt has been accepted to room [address] Carbajal. Contacted [facility]:) spoke to Tahir. Advised Tahir from [facility] to arrange transportation at 14:45 via [facility]. Informed ANNABEL Sifuentes. Addendum: 07/18/19 at 0829 by SHELLEY HINSON Amended: Links added.
== END 2019-07-17 15:00 | DRG 291 ==
LOC: TELE-EAST 10:30
PROVIDERS: ADMIT Internal Medicine; ATTEND Internal Medicine
DX: I13.0 Hypertensive heart and chronic kidney disease with heart failure and stage 1 through stage 4 chronic kidney disease, or unspecified chronic kidney disease (principal); I50.43 Acute on chronic combined systolic (congestive) and diastolic (congestive) heart failure; E43 Unspecified severe protein-calorie malnutrition; N17.9 Acute kidney failure, unspecified; E87.1 Hypo-osmolality and hyponatremia; D64.9 Anemia, unspecified; E87.5 Hyperkalemia; N18.9 Chronic kidney disease, unspecified; E86.0 Dehydration; I25.5 Ischemic cardiomyopathy; E87.6 Hypokalemia; I07.1 Rheumatic tricuspid insufficiency; I25.10 Atherosclerotic heart disease of native coronary artery without angina pectoris; Z68.22 Body mass index [BMI] 22.0-22.9, adult; Z91.19 Patient's noncompliance with other medical treatment and regimen; Z95.1 Presence of aortocoronary bypass graft; Z98.61 Coronary angioplasty status; Z86.73 Personal history of transient ischemic attack (TIA), and cerebral infarction without residual deficits; Z95.810 Presence of automatic (implantable) cardiac defibrillator; Z23 Encounter for immunization
CPT/HCPCS: 36415; 71045; 80048; 80053; 83735; 84132; 84484; 85007; 85025; 85027; 97116; 97530; G0378; J0696; J2001; J2405

== ENCOUNTER → 2019-09-07 | Outpatient (CLI) | payer MEDICARE, OTHER ==
[~2019-09-07] MED LIST changes: +SACU1TAB PO
[2019-09-07 16:13] LABS: Calcium 8.5 mg/dL (8.5-10.1); Potassium 4.9 mmol/L (3.5-5.1)
[2019-09-07 16:19] LABS: % Iron Saturation 39.4 % (15-50); Albumin 3.3 g/dL (3.4-5.0); BUN/Creatinine Ratio 38.8; Bilirubin, Total 1.2 mg/dL (0.2-1.0); Total Protein 8.1 g/dL (6.4-8.2)
[2019-09-07 16:40] LABS: Urine Blood 2+ /uL (Negative); Urine Specific Gravity 1.016 (1.001-1.035)
== END | disposition home or self-care (01) ==
LOC: LAB 12:37
PROVIDERS: ATTEND Internal Medicine Cardiovascular Disease
DX: I50.9 Heart failure, unspecified (principal); E61.1 Iron deficiency; R70.0 Elevated erythrocyte sedimentation rate; R79.89 Other specified abnormal findings of blood chemistry; Z87.440 Personal history of urinary (tract) infections; Z79.899 Other long term (current) drug therapy
CPT/HCPCS: 36415; 80053; 81003; 82728; 83540; 83550; 83880; 85045; 87086

== ENCOUNTER → 2019-09-10 | Outpatient (CLI) | payer MEDICARE, OTHER | END | disposition home or self-care (01) | LOC: Rad HDHVI 15:59 | PROVIDERS: ATTEND Internal Medicine Cardiovascular Disease | DX: I08.1 Rheumatic disorders of both mitral and tricuspid valves (principal); R42 Dizziness and giddiness; R53.83 Other fatigue; R07.9 Chest pain, unspecified | CPT/HCPCS: 93306 ==

== ENCOUNTER → 2019-12-11 | Outpatient (CLI) | payer MEDICARE, OTHER ==
[~2019-12-11] MED LIST changes: +ACET-1156 PO; +ASCO500T11 PO; +ASPI-404 PO; +DIGO0.12 PO; +DIPH25CA66 PO; +FERR-20 PO; +FURO1TAB33 PO; +MULTCAP45 PO; +NITR0.4S29 SL; +POTA10TA51 PO
[2019-12-11 11:53] LABS: Basophils # (auto) 0.1 10 ^3/uL (0-0.2); Basophils % (auto) 0.7 % (0.0-2.0); Eosinophils # (auto) 0.2 10 ^3/uL (0-0.8); Eosinophils % (auto) 2.2 % (0.0-7.0); Hematocrit 33.3 % (36.0-46.0); Hemoglobin 10.6 g/dL (12.2-16.2); Lymphocytes # (auto) 1.5 10 ^3/uL (0.4-5.4); Lymphocytes % (auto) 20.8 % (10.0-50.0); Mean Corpuscular Hemoglobin 29.1 pg (28.0-32.0); Monocytes # (auto) 0.8 10 ^3/uL (0-1.3); Monocytes % (auto) 10.9 % (0.0-12.0); Neutrophils # (auto) 4.7 10 ^3/uL (1.6-8.6); Neutrophils % (auto) 65.4 % (37.0-80.0); Nucleated Red Blood Cells % 0.1 %; Platelet Count (auto) 368 10^3/uL (140-450); Red Blood Cells 3.65 10^6/uL (4.0-5.20); Red Cell Distribution Width 17.8 % (11.8-14.3); White Blood Cell 7.2 10^3/uL (4.4-10.8)
[2019-12-11 12:02] LABS: Albumin 3.1 g/dL (3.4-5.0); Calcium 8.6 mg/dL (8.5-10.1); Potassium 4.4 mmol/L (3.5-5.1)
[2019-12-11 12:06] LABS: BUN/Creatinine Ratio 30.1; Bilirubin, Total 0.2 mg/dL (0.2-1.0); Total Protein 8.8 g/dL (6.4-8.2)
[2019-12-11 13:02] LABS: Urine Blood 2+ /uL (Negative)
[2019-12-11 13:07] LABS: Urine Specific Gravity 1.011 (1.001-1.035)
[2019-12-11 15:05] LABS: Free T4 (Free Thyroxine) 0.82 ng/dL (0.89-1.76)
== END | disposition home or self-care (01) ==
LOC: LAB 10:28
PROVIDERS: ATTEND Internal Medicine Cardiovascular Disease
DX: E03.9 Hypothyroidism, unspecified (principal); K90.9 Intestinal malabsorption, unspecified; N39.0 Urinary tract infection, site not specified; D51.9 Vitamin B12 deficiency anemia, unspecified; Z79.899 Other long term (current) drug therapy; Z00.00 Encounter for general adult medical examination without abnormal findings
CPT/HCPCS: 36415; 80053; 80061; 81003; 82306; 82607; 83036; 84439; 84443; 85025; 87086; 87088; 87186

== ENCOUNTER → 2019-12-12 | Outpatient (CLI) | payer MEDICARE, OTHER ==
--- NOTE | 2019-12-12 11:10 | NUR ---
CHF PT IN CHF CLINIC FOR TX AND EXAM OF PACE MAKER SITE THAT IS LEAKING . VSS A/O X 4 0 DISTRESS AT THIS MOMENT
[2019-12-12 11:45] VITALS: BP 127/53
--- NOTE | 2019-12-12 11:45 | NUR ---
Pre-Op Discharge Summary: See e-MAR for any medications given for this visit. Pre-op orders received and carried out per MD of EKG, LABS and chest xrays. Patient given a copy of EKG with [facility] for further follow up care. PT TO F/U TUESDAY [facility] FOR PACEMAKER EXPLANTATION MD CASTELAN EXPLAINED TO PT TO OPEN PACEMAKER AREA AREA AND DRAIN ONCE A WEEK
--- NOTE | 2019-12-12 11:50 | NUR ---
Dr. Jaron Shah at bedside Dr. Shah at bedside for exam. Additional orders received and carried out.
[2019-12-12 16:16] LABS: INR 1.02 (0.9-1.15); Partial Thromboplastin Time 30.3 sec (23.64-32.05)
== END | disposition home or self-care (01) ==
LOC: CHF HDHVI 10:48
PROVIDERS: ATTEND Internal Medicine Cardiovascular Disease
DX: Z01.812 Encounter for preprocedural laboratory examination (principal); I70.0 Atherosclerosis of aorta; M19.019 Primary osteoarthritis, unspecified shoulder; M47.814 Spondylosis without myelopathy or radiculopathy, thoracic region; M85.80 Other specified disorders of bone density and structure, unspecified site; Z79.899 Other long term (current) drug therapy; R79.82 Elevated C-reactive protein (CRP)
CPT/HCPCS: 36415; 71046; 80162; 83735; 85610; 85730; 93005; G0463

== ENCOUNTER → 2019-12-13 | Outpatient (CLI) | payer MEDICARE, OTHER ==
[~2019-12-13] MED LIST changes: -ASPI-404 PO; +ASPI-543 PO; +CEPH250C PO; -ENAL2.5T PO; +ENAL2.5T7 PO; +TORS20TA20 PO
== END | disposition home or self-care (01) ==
LOC: CATH 07:30 → EDSTATUS 12-18 09:52
PROVIDERS: ATTEND Internal Medicine Cardiovascular Disease
DX: I51.9 Heart disease, unspecified (principal); Z53.8 Procedure and treatment not carried out for other reasons

== ENCOUNTER 2019-12-18 10:10 | Inpatient (IN) | payer MEDICARE, OTHER ==
[~2019-12-18] VITALS: Ht 157.5 cm; Wt 51.6 kg
[2019-12-18 10:00] VITALS: BP 118/61
[~2019-12-18 10:10] MED LIST changes: -ACET-1156 PO; -ASCO500T11 PO; -ASPI-543 PO; -CEPH250C PO; -DIGO0.12 PO; -DIPH25CA66 PO; +ENAL2.5T PO; -ENAL2.5T7 PO; -FERR-20 PO; -FURO1TAB33 PO; -MULTCAP45 PO; -NITR0.4S29 SL; +PIPERACILLIN-TAZO 4.5GM 100 ML IV ONE; -POTA10TA51 PO; -TORS20TA20 PO
[2019-12-18] MEDS ORDERED: PIPERACILLIN-TAZO 4.5GM 100 ML IV ONE (10:14)
[2019-12-18 15:18] VITALS: BP 106/55
[2019-12-18 16:30] VITALS: BP 90/50
[2019-12-18 17:00] VITALS: BP 90/50
[2019-12-18] MEDS ORDERED: diphenhdrAMINE HCL 25 MG CAP PO PRN ×2 (17:00→17:45)
[2019-12-18] MEDS ORDERED: ASCO500T11 PO (18:39)
[2019-12-18] MEDS ORDERED: NITR0.4S29 SL (18:39)
[2019-12-18] MEDS ORDERED: FERR-20 PO (18:39)
[2019-12-18] MEDS ORDERED: ACET-1156 PO (18:39)
[2019-12-18] MEDS ORDERED: SPIR25TA8 PO (18:39)
[2019-12-18] MEDS ORDERED: ASPI-404 PO (18:39)
[2019-12-18] MEDS ORDERED: FURO1TAB33 PO (18:39)
[2019-12-18] MEDS ORDERED: DIGO0.12 PO (18:39)
[2019-12-18] MEDS ORDERED: POTA10TA51 PO (18:39)
[2019-12-18] MEDS ORDERED: DIPH25CA66 PO (18:39)
[2019-12-18] MEDS ORDERED: SACU1TAB PO (18:39)
[2019-12-18] MEDS ORDERED: MULTCAP45 PO (18:39)
[2019-12-18 21:49] VITALS: BP 95/53
[2019-12-19 04:59] VITALS: BP 99/49
[2019-12-19 09:01] LABS: BUN/Creatinine Ratio 22.8; Calcium 8.7 mg/dL (8.5-10.1)
[2019-12-19 09:05] VITALS: BP 95/55
[2019-12-19] MEDS: DIGOXIN 0.125 MG TAB PO SCH (09:21)
[2019-12-19] MEDS: SPIRONOLACTONE 25 MG TAB PO SCH (09:22)
[2019-12-19] MEDS: ASCORBIC ACID 500 MG TAB PO SCH (09:22)
[2019-12-19] MEDS: SACUBITRIL-VALSARTAN 24mg/26mg TAB PO SCH (09:22)
[2019-12-19] MEDS: FUROSEMIDE 20 MG TAB PO SCH (09:22)
[2019-12-19] MEDS: ASPirin 81 mg TAB PO SCH (09:22)
[2019-12-19] MEDS: MULTIPLE VITAMIN TAB PO SCH (09:22)
[2019-12-19] MEDS: NITROGLYCERIN 0.2MG/HR TOPICAL PATCH TD SCH (09:23)
[2019-12-19 09:37] LABS: Potassium 5.6 mmol/L (3.5-5.1)
[2019-12-19] MEDS ORDERED: POTASSIUM CHL 20 Meq TABLET PO SCH (10:00)
[2019-12-19] MEDS ORDERED: FERROUS SULFATE 325 MG TAB PO SCH (10:00)
[2019-12-19] MEDS ORDERED: PIPERACILLIN-TAZO 4.5GM 100 ML IV SCH (10:00)
[2019-12-19 12:35] VITALS: BP 84/44
[2019-12-19 16:52] VITALS: BP 89/50
[2019-12-19 21:38] VITALS: BP 108/52
[2019-12-19 22:15] LABS: Urine Bacteria FEW /hpf (None Seen); Urine Blood 2+ /uL (Negative); Urine Mucus FEW (None Seen); Urine Specific Gravity 1.017 (1.001-1.035); Urine WBC 3392 /hpf (0 - 5); Urine WBC Clumps PRESENT /hpf (None Seen)
[2019-12-19] MEDS ORDERED: SODIUM ZIRCONIUM CYCL 10 GM PAK PO ONE (22:30)
[2019-12-19] MEDS: MEROPENEM 500MG IVPB 50 ML IV SCH (23:04)
[2019-12-20 04:59] VITALS: BP 107/56
[2019-12-20 07:06] LABS: Basophils # (auto) 0.1 10 ^3/uL (0-0.2); Basophils % (auto) 0.7 % (0.0-2.0); Eosinophils # (auto) 0.3 10 ^3/uL (0-0.8); Eosinophils % (auto) 3.8 % (0.0-7.0); Hematocrit 33.2 % (36.0-46.0); Hemoglobin 11.1 g/dL (12.2-16.2); Lymphocytes # (auto) 1.4 10 ^3/uL (0.4-5.4); Lymphocytes % (auto) 18.6 % (10.0-50.0); Mean Corpuscular Hemoglobin 29.7 pg (28.0-32.0); Mean Corpuscular Hgb Conc. 33.3 g/dL (32.0-36.0); Mean Corpuscular Volume 89.1 fL (80.0-100.0); Monocytes # (auto) 0.8 10 ^3/uL (0-1.3); Monocytes % (auto) 11.2 % (0.0-12.0); Neutrophils # (auto) 4.9 10 ^3/uL (1.6-8.6); Neutrophils % (auto) 65.7 % (37.0-80.0); Nucleated Red Blood Cells % 0.1 %; Platelet Count (auto) 349 10^3/uL (140-450); Red Blood Cells 3.72 10^6/uL (4.0-5.20); Red Cell Distribution Width 17.4 % (11.8-14.3); White Blood Cell 7.5 10^3/uL (4.4-10.8)
[2019-12-20 07:14] LABS: INR 1.05 (0.9-1.15); Partial Thromboplastin Time 33.8 sec (23.64-32.05)
[2019-12-20] MEDS: FERROUS SULFATE 325 MG TAB PO SCH (08:00)
[2019-12-20 08:51] VITALS: BP 100/52
[2019-12-20] MEDS: ASCORBIC ACID 500 MG TAB PO SCH (10:00)
[2019-12-20] MEDS: FUROSEMIDE 20 MG TAB PO SCH (10:00)
[2019-12-20] MEDS: SPIRONOLACTONE 25 MG TAB PO SCH (10:00)
[2019-12-20] MEDS: NITROGLYCERIN 0.2MG/HR TOPICAL PATCH TD SCH (10:00)
[2019-12-20] MEDS: MULTIPLE VITAMIN TAB PO SCH (10:00)
[2019-12-20] MEDS: ASPirin 81 mg TAB PO SCH (10:00)
[2019-12-20] MEDS: SACUBITRIL-VALSARTAN 24mg/26mg TAB PO SCH (10:00)
[2019-12-20] MEDS: DIGOXIN 0.125 MG TAB PO SCH (10:00)
[2019-12-20] MEDS: MEROPENEM 500MG IVPB 50 ML IV SCH ×2 (10:23→22:14)
[2019-12-20 12:01] LABS: BUN/Creatinine Ratio 26.1; Calcium 8.5 mg/dL (8.5-10.1); Potassium 4.8 mmol/L (3.5-5.1)
[2019-12-20 12:38] VITALS: BP 99/58
[2019-12-20] MEDS ORDERED: MIDAZOLAM HCL 1MG/1ML-2 ML VIAL ONE (12:43)
[2019-12-20] MEDS ORDERED: ceFAZolin 1GM/50ML 50 ML IV ONE (12:43)
[2019-12-20] MEDS ORDERED: fentaNYL CITRATE 100 MCG/2 ML VL ONE (12:43)
[2019-12-20] MEDS ORDERED: VANCOMYCIN HCL 1000 MG VL ONE (12:43)
[2019-12-20] MEDS ORDERED: LIDOCAINE 2%HCL (LOCAL ANESTH.) INJ 20ML MDV ONE (12:44)
[2019-12-20] MEDS ORDERED: VANCOMYCIN 1GM/250ML 0 ML IV ONE (12:44)
[2019-12-20] MEDS ORDERED: BACITRACIN INJ 50000 UNIT VIAL ONE ×2 (13:11)
[2019-12-20 16:48] VITALS: BP 101/46
[2019-12-20] MEDS: ACETAMINOPHEN 325 MG TAB PO PRN (17:23)
[2019-12-20] MEDS ORDERED: VANCOMYCIN PER PHARMACY 0 MG IV SCH (20:45)
[2019-12-20] MEDS ORDERED: VANCOMYCIN 750mg/250ml 250 ML IV ONE (21:30)
[2019-12-20 22:00] VITALS: BP 108/54
[2019-12-21 04:49] VITALS: BP 105/50
[2019-12-21 05:36] LABS: Basophils # (auto) 0.1 10 ^3/uL (0-0.2); Basophils % (auto) 0.9 % (0.0-2.0); Eosinophils # (auto) 0.2 10 ^3/uL (0-0.8); Eosinophils % (auto) 2.7 % (0.0-7.0); Hematocrit 31.9 % (36.0-46.0); Hemoglobin 10.5 g/dL (12.2-16.2); Lymphocytes # (auto) 1.2 10 ^3/uL (0.4-5.4); Lymphocytes % (auto) 15.3 % (10.0-50.0); Mean Corpuscular Volume 87.8 fL (80.0-100.0); Monocytes # (auto) 0.9 10 ^3/uL (0-1.3); Monocytes % (auto) 11.2 % (0.0-12.0); Neutrophils # (auto) 5.6 10 ^3/uL (1.6-8.6); Neutrophils % (auto) 69.9 % (37.0-80.0); Platelet Count (auto) 357 10^3/uL (140-450); Red Blood Cells 3.63 10^6/uL (4.0-5.20); Red Cell Distribution Width 17.7 % (11.8-14.3); White Blood Cell 8.1 10^3/uL (4.4-10.8)
[2019-12-21 05:52] LABS: Albumin 2.2 g/dL (3.4-5.0); Potassium 4.9 mmol/L (3.5-5.1)
[2019-12-21 05:54] LABS: BUN/Creatinine Ratio 30.8
[2019-12-21 05:56] LABS: Bilirubin, Total 0.2 mg/dL (0.2-1.0); Total Protein 7.9 g/dL (6.4-8.2)
[2019-12-21 08:00] VITALS: BP 96/55
[2019-12-21 08:42] VITALS: BP 96/55
[2019-12-21] MEDS: FERROUS SULFATE 325 MG TAB PO SCH (09:30)
[2019-12-21] MEDS: MEROPENEM 500MG IVPB 50 ML IV SCH ×2 (09:31→22:12)
[2019-12-21] MEDS: SACUBITRIL-VALSARTAN 24mg/26mg TAB PO SCH (09:31)
[2019-12-21] MEDS: ASPirin 81 mg TAB PO SCH (09:32)
[2019-12-21] MEDS: SPIRONOLACTONE 25 MG TAB PO SCH (09:32)
[2019-12-21] MEDS: ASCORBIC ACID 500 MG TAB PO SCH (09:32)
[2019-12-21] MEDS: MULTIPLE VITAMIN TAB PO SCH (09:32)
[2019-12-21] MEDS: DIGOXIN 0.125 MG TAB PO SCH (09:33)
[2019-12-21] MEDS: NITROGLYCERIN 0.2MG/HR TOPICAL PATCH TD SCH (09:42)
[2019-12-21] MEDS: FUROSEMIDE 20 MG TAB PO SCH (09:42)
[2019-12-21] MEDS ORDERED: VANCOMYCIN 750mg/250ml 250 ML IV ONE (13:00)
[2019-12-21 13:20] VITALS: BP 95/49
[2019-12-21 16:40] VITALS: BP 95/50
[2019-12-21 22:00] VITALS: BP 102/52
[2019-12-22 05:00] VITALS: BP_SYST 110; BP_SYST 112; BP_DIAS 51; BP_DIAS 56
[2019-12-22 05:29] LABS: Basophils # (auto) 0.1 10 ^3/uL (0-0.2); Basophils % (auto) 0.7 % (0.0-2.0); Eosinophils # (auto) 0.2 10 ^3/uL (0-0.8); Eosinophils % (auto) 2.6 % (0.0-7.0); Hematocrit 32.7 % (36.0-46.0); Hemoglobin 10.7 g/dL (12.2-16.2); Lymphocytes # (auto) 1.4 10 ^3/uL (0.4-5.4); Lymphocytes % (auto) 16.7 % (10.0-50.0); Mean Corpuscular Hgb Conc. 32.6 g/dL (32.0-36.0); Monocytes # (auto) 0.8 10 ^3/uL (0-1.3); Monocytes % (auto) 8.9 % (0.0-12.0); Neutrophils # (auto) 6.1 10 ^3/uL (1.6-8.6); Neutrophils % (auto) 71.1 % (37.0-80.0); Platelet Count (auto) 361 10^3/uL (140-450); Red Blood Cells 3.68 10^6/uL (4.0-5.20); Red Cell Distribution Width 17.5 % (11.8-14.3); White Blood Cell 8.7 10^3/uL (4.4-10.8)
[2019-12-22 05:52] LABS: Calcium 8.4 mg/dL (8.5-10.1); Potassium 5.2 mmol/L (3.5-5.1)
[2019-12-22 05:55] LABS: BUN/Creatinine Ratio 31.5
[2019-12-22 08:00] VITALS: BP 94/53
[2019-12-22 09:28] VITALS: BP 94/53
[2019-12-22] MEDS: FERROUS SULFATE 325 MG TAB PO SCH (09:48)
[2019-12-22] MEDS: ASPirin 81 mg TAB PO SCH (09:48)
[2019-12-22] MEDS: SACUBITRIL-VALSARTAN 24mg/26mg TAB PO SCH (09:48)
[2019-12-22] MEDS: MULTIPLE VITAMIN TAB PO SCH (09:48)
[2019-12-22] MEDS: MEROPENEM 500MG IVPB 50 ML IV SCH ×2 (09:48→23:03)
[2019-12-22] MEDS: SPIRONOLACTONE 25 MG TAB PO SCH (09:48)
[2019-12-22] MEDS: DIGOXIN 0.125 MG TAB PO SCH (09:49)
[2019-12-22] MEDS: NITROGLYCERIN 0.2MG/HR TOPICAL PATCH TD SCH (09:51)
[2019-12-22] MEDS: FUROSEMIDE 20 MG TAB PO SCH (09:51)
[2019-12-22] MEDS: ASCORBIC ACID 500 MG TAB PO SCH (09:51)
[2019-12-22 12:56] VITALS: BP 104/53
[2019-12-22] MEDS: VANCOMYCIN 750mg/250ml 250 ML IV SCH ×2 (13:06→14:10)
[2019-12-22 16:29] LABS: Urine Bacteria FEW /hpf (None Seen); Urine Blood 2+ /uL (Negative); Urine Mucus FEW (None Seen); Urine Specific Gravity 1.014 (1.001-1.035); Urine WBC 1651 /hpf (0 - 5); Urine WBC Clumps PRESENT /hpf (None Seen)
[2019-12-22 17:11] VITALS: BP 92/49
[2019-12-22 22:00] VITALS: BP 104/49
[2019-12-23 05:36] LABS: BUN/Creatinine Ratio 38.6; Calcium 8.7 mg/dL (8.5-10.1)
[2019-12-23] MEDS: FERROUS SULFATE 325 MG TAB PO SCH (07:55)
[2019-12-23 09:00] VITALS: BP 100/53
[2019-12-23] MEDS: FUROSEMIDE 20 MG TAB PO SCH (10:00)
[2019-12-23] MEDS: NITROGLYCERIN 0.2MG/HR TOPICAL PATCH TD SCH (10:00)
[2019-12-23] MEDS: MEROPENEM 500MG IVPB 50 ML IV SCH ×2 (10:09→22:55)
[2019-12-23] MEDS: SACUBITRIL-VALSARTAN 24mg/26mg TAB PO SCH (10:09)
[2019-12-23] MEDS: ASCORBIC ACID 500 MG TAB PO SCH (10:09)
[2019-12-23] MEDS: MULTIPLE VITAMIN TAB PO SCH (10:09)
[2019-12-23] MEDS: ASPirin 81 mg TAB PO SCH (10:09)
[2019-12-23] MEDS: DIGOXIN 0.125 MG TAB PO SCH (10:10)
[2019-12-23] MEDS: VANCOMYCIN 750mg/250ml 250 ML IV SCH (12:58)
[2019-12-23 13:00] VITALS: BP 95/42
[2019-12-23 17:00] VITALS: BP 97/49
[2019-12-23 22:00] VITALS: BP 104/46
[2019-12-24 05:00] LABS: Basophils # (auto) 0.1 10 ^3/uL (0-0.2); Basophils % (auto) 1.1 % (0.0-2.0); Eosinophils # (auto) 0.3 10 ^3/uL (0-0.8); Eosinophils % (auto) 3.4 % (0.0-7.0); Hemoglobin 10.6 g/dL (12.2-16.2); Lymphocytes # (auto) 1.4 10 ^3/uL (0.4-5.4); Lymphocytes % (auto) 16.9 % (10.0-50.0); Mean Corpuscular Volume 87.9 fL (80.0-100.0); Monocytes # (auto) 0.9 10 ^3/uL (0-1.3); Monocytes % (auto) 10.3 % (0.0-12.0); Neutrophils # (auto) 5.8 10 ^3/uL (1.6-8.6); Neutrophils % (auto) 68.3 % (37.0-80.0); Platelet Count (auto) 374 10^3/uL (140-450); Red Blood Cells 3.64 10^6/uL (4.0-5.20); Red Cell Distribution Width 17.5 % (11.8-14.3); White Blood Cell 8.5 10^3/uL (4.4-10.8)
[2019-12-24 05:20] LABS: Calcium 8.5 mg/dL (8.5-10.1); Potassium 5.1 mmol/L (3.5-5.1)
[2019-12-24 06:00] VITALS: BP 104/55
[2019-12-24] MEDS: FERROUS SULFATE 325 MG TAB PO SCH (08:40)
[2019-12-24 09:00] VITALS: BP 111/53
[2019-12-24] MEDS: ASPirin 81 mg TAB PO SCH (09:45)
[2019-12-24] MEDS: MEROPENEM 500MG IVPB 50 ML IV SCH (09:45)
[2019-12-24] MEDS: DIGOXIN 0.125 MG TAB PO SCH (09:46)
[2019-12-24] MEDS: SACUBITRIL-VALSARTAN 24mg/26mg TAB PO SCH (09:46)
[2019-12-24] MEDS: NITROGLYCERIN 0.2MG/HR TOPICAL PATCH TD SCH (09:46)
[2019-12-24] MEDS: FUROSEMIDE 20 MG TAB PO SCH (09:46)
[2019-12-24] MEDS: ASCORBIC ACID 500 MG TAB PO SCH (09:46)
[2019-12-24] MEDS: MULTIPLE VITAMIN TAB PO SCH (09:46)
[2019-12-24 12:50] VITALS: BP 98/43
[2019-12-24] MEDS: VANCOMYCIN 750mg/250ml 250 ML IV SCH (13:44)
[2019-12-24 16:55] VITALS: BP 97/51
[2019-12-24 21:42] VITALS: BP 91/47
[2019-12-24] MEDS ORDERED: MEROPENEM 1GM IVPB 100 ML IV SCH (22:00)
[2019-12-24] MEDS: SODIUM CHLORIDE IV SCH (23:29)
[2019-12-24] MEDS: MEROPENEM 1 GM IV SCH (23:29)
[2019-12-25 05:36] VITALS: BP 112/53
[2019-12-25 08:07] LABS: BUN/Creatinine Ratio 39.2; Potassium 5.1 mmol/L (3.5-5.1)
[2019-12-25] MEDS: FERROUS SULFATE 325 MG TAB PO SCH (08:14)
[2019-12-25 09:00] VITALS: BP 96/48
[2019-12-25 09:45] LABS: Basophils # (auto) 0.1 10 ^3/uL (0-0.2); Eosinophils # (auto) 0.3 10 ^3/uL (0-0.8); Eosinophils % (auto) 4.6 % (0.0-7.0); Hematocrit 29.8 % (36.0-46.0); Hemoglobin 9.4 g/dL (12.2-16.2); Lymphocytes # (auto) 1.3 10 ^3/uL (0.4-5.4); Lymphocytes % (auto) 21.9 % (10.0-50.0); Mean Corpuscular Hemoglobin 28.9 pg (28.0-32.0); Mean Corpuscular Hgb Conc. 31.5 g/dL (32.0-36.0); Mean Corpuscular Volume 91.8 fL (80.0-100.0); Monocytes # (auto) 0.7 10 ^3/uL (0-1.3); Monocytes % (auto) 11.7 % (0.0-12.0); Neutrophils # (auto) 3.7 10 ^3/uL (1.6-8.6); Neutrophils % (auto) 60.8 % (37.0-80.0); Platelet Count (auto) 356 10^3/uL (140-450); Red Blood Cells 3.25 10^6/uL (4.0-5.20); Red Cell Distribution Width 18.2 % (11.8-14.3); White Blood Cell 6.1 10^3/uL (4.4-10.8)
[2019-12-25] MEDS: MULTIPLE VITAMIN TAB PO SCH (09:52)
[2019-12-25] MEDS: SACUBITRIL-VALSARTAN 24mg/26mg TAB PO SCH (09:52)
[2019-12-25] MEDS: DIGOXIN 0.125 MG TAB PO SCH (09:52)
[2019-12-25] MEDS: ASCORBIC ACID 500 MG TAB PO SCH (09:52)
[2019-12-25] MEDS: FUROSEMIDE 20 MG TAB PO SCH (09:53)
[2019-12-25] MEDS: ASPirin 81 mg TAB PO SCH (09:53)
[2019-12-25] MEDS: MEROPENEM 1 GM IV SCH ×2 (09:53→21:29)
[2019-12-25] MEDS: SODIUM CHLORIDE IV SCH ×2 (09:53→21:29)
[2019-12-25] MEDS: NITROGLYCERIN 0.2MG/HR TOPICAL PATCH TD SCH (09:54)
[2019-12-25 10:53] LABS: INR 1.03 (0.9-1.15); Partial Thromboplastin Time 31.4 sec (23.64-32.05)
[2019-12-25] MEDS ORDERED: VANCOMYCIN HCL 1000 MG VL ONE (12:18)
[2019-12-25] MEDS ORDERED: LIDOCAINE 2%HCL (LOCAL ANESTH.) INJ 20ML MDV ONE ×2 (12:19→12:46)
[2019-12-25] MEDS ORDERED: fentaNYL CITRATE 100 MCG/2 ML VL ONE (12:19)
[2019-12-25] MEDS ORDERED: MIDAZOLAM HCL 1MG/1ML-2 ML VIAL ONE (12:19)
[2019-12-25] MEDS ORDERED: ceFAZolin 1GM/50ML 0 ML IV ONE (12:42)
[2019-12-25] MEDS: VANCOMYCIN 750mg/250ml 250 ML IV SCH (13:00)
[2019-12-25] MEDS ORDERED: IOHEXOL 350 MG/ML 100ML IJ ONE (13:21)
[2019-12-25 14:12] VITALS: BP 105/54
[2019-12-25] MEDS: ACETAMINOPHEN 325 MG TAB PO PRN (16:22)
[2019-12-25 17:10] VITALS: BP 84/54
[2019-12-25] MEDS: HYDROmorphone HCL 2 MG/ML VL IV PRN (21:18)
[2019-12-25] MEDS: ONDANSETRON HCL 4 MG/2 ML VIAL IV PRN (21:19)
[2019-12-25 22:00] VITALS: BP 100/50
[2019-12-26] MEDS: HYDROmorphone HCL 2 MG/ML VL IV PRN ×2 (03:12→09:23)
[2019-12-26] MEDS: ONDANSETRON HCL 4 MG/2 ML VIAL IV PRN ×2 (03:48→12:34)
[2019-12-26 05:00] VITALS: BP 100/50
[2019-12-26 05:03] LABS: Basophils # (auto) 0.1 10 ^3/uL (0-0.2); Basophils % (auto) 0.6 % (0.0-2.0); Eosinophils # (auto) 0.2 10 ^3/uL (0-0.8); Hematocrit 31.3 % (36.0-46.0); Hemoglobin 10.1 g/dL (12.2-16.2); Lymphocytes # (auto) 1.1 10 ^3/uL (0.4-5.4); Lymphocytes % (auto) 8.7 % (10.0-50.0); Mean Corpuscular Hemoglobin 28.6 pg (28.0-32.0); Mean Corpuscular Hgb Conc. 32.3 g/dL (32.0-36.0); Mean Corpuscular Volume 88.5 fL (80.0-100.0); Neutrophils # (auto) 10.2 10 ^3/uL (1.6-8.6); Neutrophils % (auto) 80.7 % (37.0-80.0); Platelet Count (auto) 358 10^3/uL (140-450); Red Blood Cells 3.54 10^6/uL (4.0-5.20); Red Cell Distribution Width 17.6 % (11.8-14.3); White Blood Cell 12.7 10^3/uL (4.4-10.8)
[2019-12-26 05:21] LABS: Calcium 8.4 mg/dL (8.5-10.1); Potassium 5.5 mmol/L (3.5-5.1)
[2019-12-26 05:23] LABS: BUN/Creatinine Ratio 38.1
[2019-12-26] MEDS: FERROUS SULFATE 325 MG TAB PO SCH (08:25)
[2019-12-26 09:00] VITALS: BP 101/62
[2019-12-26] MEDS: ASCORBIC ACID 500 MG TAB PO SCH (09:23)
[2019-12-26] MEDS: MULTIPLE VITAMIN TAB PO SCH (09:23)
[2019-12-26] MEDS: FUROSEMIDE 20 MG TAB PO SCH (09:24)
[2019-12-26] MEDS: SACUBITRIL-VALSARTAN 24mg/26mg TAB PO SCH (09:25)
[2019-12-26] MEDS: ASPirin 81 mg TAB PO SCH (09:25)
[2019-12-26] MEDS: DIGOXIN 0.125 MG TAB PO SCH (09:25)
[2019-12-26] MEDS: MEROPENEM 1 GM IV SCH ×2 (09:31→22:10)
[2019-12-26] MEDS: SODIUM CHLORIDE IV SCH ×2 (09:31→22:10)
[2019-12-26] MEDS: NITROGLYCERIN 0.2MG/HR TOPICAL PATCH TD SCH (10:00)
[2019-12-26] MEDS: VANCOMYCIN 750mg/250ml 250 ML IV SCH (12:34)
[2019-12-26 13:00] VITALS: BP 125/57
[2019-12-26 16:38] VITALS: BP 122/58
[2019-12-26 22:00] VITALS: BP 127/50
[2019-12-27 05:00] VITALS: BP 124/58
[2019-12-27 05:24] LABS: Basophils # (auto) 0 10 ^3/uL (0-0.2); Basophils % (auto) 0.6 % (0.0-2.0); Eosinophils # (auto) 0.3 10 ^3/uL (0-0.8); Eosinophils % (auto) 3.1 % (0.0-7.0); Hematocrit 29.4 % (36.0-46.0); Hemoglobin 9.7 g/dL (12.2-16.2); Lymphocytes # (auto) 1.1 10 ^3/uL (0.4-5.4); Lymphocytes % (auto) 13.9 % (10.0-50.0); Mean Corpuscular Hemoglobin 29.3 pg (28.0-32.0); Mean Corpuscular Hgb Conc. 33.2 g/dL (32.0-36.0); Mean Corpuscular Volume 88.4 fL (80.0-100.0); Monocytes # (auto) 0.9 10 ^3/uL (0-1.3); Monocytes % (auto) 11.6 % (0.0-12.0); Neutrophils # (auto) 5.8 10 ^3/uL (1.6-8.6); Neutrophils % (auto) 70.8 % (37.0-80.0); Platelet Count (auto) 323 10^3/uL (140-450); Red Blood Cells 3.33 10^6/uL (4.0-5.20); Red Cell Distribution Width 17.5 % (11.8-14.3); White Blood Cell 8.2 10^3/uL (4.4-10.8)
[2019-12-27 05:48] LABS: Calcium 8.8 mg/dL (8.5-10.1); Potassium 4.6 mmol/L (3.5-5.1)
[2019-12-27 05:50] LABS: BUN/Creatinine Ratio 36.8
[2019-12-27 09:00] VITALS: BP 96/53
[2019-12-27] MEDS: FERROUS SULFATE 325 MG TAB PO SCH (09:18)
[2019-12-27] MEDS: SACUBITRIL-VALSARTAN 24mg/26mg TAB PO SCH (09:20)
[2019-12-27] MEDS: NITROGLYCERIN 0.2MG/HR TOPICAL PATCH TD SCH (09:20)
[2019-12-27] MEDS: FUROSEMIDE 20 MG TAB PO SCH (09:20)
[2019-12-27] MEDS: ASCORBIC ACID 500 MG TAB PO SCH (09:32)
[2019-12-27] MEDS: MULTIPLE VITAMIN TAB PO SCH (09:32)
[2019-12-27] MEDS: DIGOXIN 0.125 MG TAB PO SCH (09:33)
[2019-12-27] MEDS: ASPirin 81 mg TAB PO SCH (09:33)
[2019-12-27] MEDS: SODIUM CHLORIDE IV SCH (09:33)
[2019-12-27] MEDS: MEROPENEM 1 GM IV SCH (09:33)
[2019-12-27] MEDS: VANCOMYCIN 750mg/250ml 250 ML IV SCH (13:00)
[2019-12-27 13:34] VITALS: BP 96/53
[2020-02-08] MEDS ORDERED: CEPH250C PO (14:45)
[2020-02-11] MEDS ORDERED: TORS20TA20 PO (14:45)
[2020-02-11] MEDS ORDERED: CLOP75TA28 PO (14:45)
== END 2019-12-27 14:40 | disposition home or self-care (01) | DRG 226 ==
LOC: CHF HDHVI 10:10 → TELE-CENTR 15:54
PROVIDERS: ADMIT Internal Medicine Cardiovascular Disease; ATTEND Internal Medicine Cardiovascular Disease
PROC: 02PA3MZ Removal of Cardiac Lead from Heart, Percutaneous Approach (ICD-10-PCS; principal; 2019-12-20)
PROC: 0JPT0PZ Removal of Cardiac Rhythm Related Device from Trunk Subcutaneous Tissue and Fascia, Open Approach (ICD-10-PCS; 2019-12-20)
PROC: 02HK3KZ Insertion of Defibrillator Lead into Right Ventricle, Percutaneous Approach (ICD-10-PCS; 2019-12-25)
PROC: 02HL3KZ Insertion of Defibrillator Lead into Left Ventricle, Percutaneous Approach (ICD-10-PCS; 2019-12-25)
PROC: 0JH609Z Insertion of Cardiac Resynchronization Defibrillator Pulse Generator into Chest Subcutaneous Tissue and Fascia, Open Approach (ICD-10-PCS; 2019-12-25)
PROC: 02H63KZ Insertion of Defibrillator Lead into Right Atrium, Percutaneous Approach (ICD-10-PCS; 2019-12-25)
DX: T82.7XXA Infection and inflammatory reaction due to other cardiac and vascular devices, implants and grafts, initial encounter (principal); I50.42 Chronic combined systolic (congestive) and diastolic (congestive) heart failure; I25.5 Ischemic cardiomyopathy; A41.9 Sepsis, unspecified organism; E43 Unspecified severe protein-calorie malnutrition; E87.1 Hypo-osmolality and hyponatremia; N39.0 Urinary tract infection, site not specified; Z16.12 Extended spectrum beta lactamase (ESBL) resistance; E87.5 Hyperkalemia; B96.20 Unspecified Escherichia coli [E. coli] as the cause of diseases classified elsewhere; I25.10 Atherosclerotic heart disease of native coronary artery without angina pectoris; D64.9 Anemia, unspecified; N18.9 Chronic kidney disease, unspecified; Z45.02 Encounter for adjustment and management of automatic implantable cardiac defibrillator; E88.09 Other disorders of plasma-protein metabolism, not elsewhere classified; Z86.73 Personal history of transient ischemic attack (TIA), and cerebral infarction without residual deficits; Z87.440 Personal history of urinary (tract) infections; Z95.5 Presence of coronary angioplasty implant and graft; Z95.1 Presence of aortocoronary bypass graft; Z79.899 Other long term (current) drug therapy; Z68.20 Body mass index [BMI] 20.0-20.9, adult
CPT/HCPCS: 33224; 33241; 33249; 36415; 71045; 80048; 80053; 80202; 81001; 85025; 85610; 85730; 87081; 93005; 96365; 96366; 96379; 99152; 99153; G0378; G0463; J0690; J2185; J2250; J2405; J2543

== ENCOUNTER → 2019-12-31 | Outpatient (CLI) | payer MEDICARE, OTHER ==
[~2019-12-31] MED LIST changes: +ACET-1156 PO; +ASCO500T11 PO; +ASPI-404 PO; -CLOP75TA28 PO; +DIGO0.12 PO; +DIPH25CA66 PO; -ENAL2.5T PO; +FERR-20 PO; +FURO1TAB33 PO; -FURO20TA3 PO; +MULTCAP45 PO; +NITR0.4S29 SL; -PIPERACILLIN-TAZO 4.5GM 100 ML IV ONE; -POTA-220 PO; +POTA10TA51 PO
== END | disposition home or self-care (01) ==
LOC: Rad HDHVI 11:18
PROVIDERS: ATTEND Internal Medicine Cardiovascular Disease
DX: Z45.018 Encounter for adjustment and management of other part of cardiac pacemaker (principal)
CPT/HCPCS: 93306

== ENCOUNTER → 2020-02-11 | Outpatient (CLI) | payer MEDICARE, OTHER ==
[~2020-02-11] MED LIST changes: +CEPH250C PO; +CLOP75TA28 PO; +ENAL2.5T PO; +FURO20TA3 PO; +POTA-220 PO; +TORS20TA20 PO
[2020-02-11 16:11] LABS: Basophils # (auto) 0 10 ^3/uL (0-0.2); Basophils % (auto) 0.6 % (0.0-2.0); Eosinophils # (auto) 0.1 10 ^3/uL (0-0.8); Hematocrit 37.4 % (36.0-46.0); Hemoglobin 12.4 g/dL (12.2-16.2); Lymphocytes # (auto) 1.7 10 ^3/uL (0.4-5.4); Lymphocytes % (auto) 25.5 % (10.0-50.0); Mean Corpuscular Hemoglobin 31.9 pg (28.0-32.0); Mean Corpuscular Hgb Conc. 33.2 g/dL (32.0-36.0); Mean Corpuscular Volume 95.9 fL (80.0-100.0); Monocytes # (auto) 0.7 10 ^3/uL (0-1.3); Monocytes % (auto) 10.6 % (0.0-12.0); Neutrophils % (auto) 61.3 % (37.0-80.0); Platelet Count (auto) 366 10^3/uL (140-450); Red Cell Distribution Width 17.6 % (11.8-14.3); White Blood Cell 6.6 10^3/uL (4.4-10.8)
[2020-02-11 16:16] LABS: Calcium 8.3 mg/dL (8.5-10.1); Potassium 5.1 mmol/L (3.5-5.1)
[2020-02-11 16:18] LABS: INR 1.11 (0.9-1.15); Partial Thromboplastin Time 30.9 sec (23.64-32.05)
== END | disposition home or self-care (01) ==
LOC: Rad HDHVI 12:33
PROVIDERS: ATTEND Internal Medicine Cardiovascular Disease
DX: Z01.812 Encounter for preprocedural laboratory examination (principal); Z95.810 Presence of automatic (implantable) cardiac defibrillator; M41.84 Other forms of scoliosis, thoracic region; I25.5 Ischemic cardiomyopathy; I50.9 Heart failure, unspecified
CPT/HCPCS: 36415; 71046; 80048; 85025; 85610; 85730

== ENCOUNTER 2020-02-14 09:20 | Inpatient (IN) | payer MEDICARE, OTHER ==
[~2020-02-14] VITALS: Ht 157.5 cm; Wt 47.5 kg
[~2020-02-14 09:20] MED LIST changes: -DIGO0.12 PO; -DIPH25CA66 PO; -ENAL2.5T PO; -FERR-20 PO; -FURO20TA3 PO; -POTA-220 PO
[2020-02-14] MEDS ORDERED: VANCOMYCIN 1GM/250ML 250 ML IV ONE (10:37)
[2020-02-14] MEDS ORDERED: LIDOCAINE 2%HCL (LOCAL ANESTH.) INJ 20ML MDV ONE ×2 (11:02→11:03)
[2020-02-14] MEDS ORDERED: fentaNYL CITRATE 100 MCG/2 ML VL ONE (11:17)
[2020-02-14] MEDS ORDERED: VANCOMYCIN HCL 1000 MG VL ONE (11:17)
[2020-02-14] MEDS ORDERED: MIDAZOLAM HCL 1MG/1ML-2 ML VIAL ONE (11:17)
[2020-02-14] MEDS ORDERED: NITROGLYCERIN 0.4 MG SL TAB SL PRN (12:45)
[2020-02-14] MEDS ORDERED: NITROGLYCERIN 0.4 MG SL TAB SL SCH (12:45)
[2020-02-14] MEDS ORDERED: ceFAZolin 1GM/50ML 50 ML IV SCH (12:45)
[2020-02-14] MEDS ORDERED: ACETAMINOPHEN 325 MG TAB PO PRN ×2 (12:45)
[2020-02-14] MEDS ORDERED: MORPHINE SULF INJ 2 MG/ML SYRINGE 1ML IV PRN (12:45)
[2020-02-14] MEDS ORDERED: HYDROcodone-ACET 5/325MG TAB PO PRN (12:45)
[2020-02-14 14:40] VITALS: BP 101/49
--- NOTE | 2020-02-14 14:40 | NUR ---
Report received. HAMILTON CHAPPELL brought to bed 288 B. Patient transfered to unit bed, connected to monitoring and evaluation advisor #[id number]. Safety precautions in place, bed set to lowest position/locked, bedside rails up x2, call light within reach. Instructed patient to call for assistance. Patient verbalized understanding. Will continue to monitor q1hr and prn.
[2020-02-14] MEDS: ceFAZolin 1GM/50ML 50 ML IV SCH ×2 (16:48→21:54)
[2020-02-14 17:00] VITALS: BP 114/52
[2020-02-14] MEDS ORDERED: CEPHALEXIN 250 MG CAP PO SCH (18:00)
--- NOTE | 2020-02-14 19:38 | NUR ---
Opening Shift Note Assumed care of patient, awake and alert. No S/S of distress/SOB or pain. Safety measures in place bed in lowest position, side rails up x2, and call light within reach. Instructed on POC and to call for assist PRN, will continue to monitor for changes Q1hr and PRN.
[2020-02-14 22:00] VITALS: BP 92/49
[2020-02-15 05:00] VITALS: BP 100/49
[2020-02-15] MEDS: ceFAZolin 1GM/50ML 50 ML IV SCH ×2 (06:15→14:00)
[2020-02-15 09:00] VITALS: BP 102/54
[2020-02-15] MEDS ORDERED: MULTIPLE VITAMIN TAB PO SCH (10:00)
[2020-02-15] MEDS ORDERED: ASCORBIC ACID 500 MG TAB PO SCH (10:00)
[2020-02-15] MEDS ORDERED: SPIRONOLACTONE 25 MG TAB PO SCH (10:00)
[2020-02-15] MEDS ORDERED: FUROSEMIDE 20 MG TAB PO SCH (10:00)
[2020-02-15] MEDS ORDERED: PATIENTS OWN MEDICATION (Multiple Vitamin (Multivitamins) 1 CAP) PO SCH (10:00)
[2020-02-15] MEDS ORDERED: PATIENTS OWN MEDICATION (Potassium Chloride (Potassium Chloride Cr) 20 MEQ) PO SCH (10:00)
[2020-02-15] MEDS ORDERED: TORSEMIDE 20 MG TAB PO SCH (10:00)
[2020-02-15] MEDS ORDERED: POTASSIUM CHL 20 Meq TABLET PO SCH (10:00)
[2020-02-15] MEDS ORDERED: SACUBITRIL-VALSARTAN 24mg/26mg TAB PO SCH (10:00)
[2020-02-15 13:00] VITALS: BP 105/57
--- NOTE | 2020-02-15 14:05 | NUR ---
Est energy needs [id number] (25-30 kcal/kg IBW (50kg) Est protein needs 40-50g (0.8-1g/kg IBW (50kg). Will reassess prn. Addendum: 02/15/20 at [address] Amended: Links added.
--- NOTE | 2020-02-15 14:29 | NUR ---
IV / DC Patient's IV is leaking. Ancef due at this time. Contacted Dr. Salmeron to see if she will be D/Cd today as patient stated she is a hard stick and night nurse said it took 7 tries to get an IV in. Dr. Salmeron said the patient will be discharged and she is to continue her antibiotics at home. She still has Keflex that she started prior to admission yesterday.
[2020-02-15 17:00] VITALS: BP 111/55
--- NOTE | 2020-02-15 17:23 | NUR ---
Discharge Went over discharge paperwork with patient. No new prescriptions. Patient informed of Dr. mai that was made. Dr. Salmeron came to see her just now. Removed IV intact, no problems. Removed Telemetry box and sent to ICU per hospital protocol. Patient is getting dressed and waiting for her ride to go home.
== END 2020-02-15 17:45 | disposition home or self-care (01) | DRG 907 ==
LOC: CATH 09:20 → TELE-WESTW 14:55
PROVIDERS: ADMIT Internal Medicine Cardiovascular Disease; ATTEND Internal Medicine Cardiovascular Disease
PROC: 02PA0MZ Removal of Cardiac Lead from Heart, Open Approach (ICD-10-PCS; principal; 2020-02-14)
PROC: 0JPT0PZ Removal of Cardiac Rhythm Related Device from Trunk Subcutaneous Tissue and Fascia, Open Approach (ICD-10-PCS; 2020-02-14)
DX: T81.31XA Disruption of external operation (surgical) wound, not elsewhere classified, initial encounter (principal); I50.21 Acute systolic (congestive) heart failure; I42.0 Dilated cardiomyopathy; I44.7 Left bundle-branch block, unspecified; Z79.899 Other long term (current) drug therapy; Y92.89 Other specified places as the place of occurrence of the external cause; Z11.59 Encounter for screening for other viral diseases
CPT/HCPCS: 33241; 33244; 71045; 87081; 87635; 99152; G0378; J0690; J2250

== ENCOUNTER 2022-08-05 20:56 | Inpatient (IN) | payer MEDICARE, OTHER ==
[~2022-08-05] VITALS: Ht 157.5 cm; Wt 0.1 kg
[~2022-08-05 20:56] MED LIST changes: -ASPI-404 PO; +ASPI-543 PO; +CEPH-322 PO; -CEPH250C PO; +NITR-52 PO
[2022-08-05 22:24] LABS: Basophils # (auto) 0 10 ^3/uL (0-0.2); Basophils % (auto) 0.3 % (0.0-2.0); Eosinophils # (auto) 0.1 10 ^3/uL (0-0.8); Eosinophils % (auto) 0.9 % (0.0-7.0); Hematocrit 33.1 % (36.0-46.0); Hemoglobin 11.3 g/dL (12.2-16.2); Lymphocytes # (auto) 1.1 10 ^3/uL (0.4-5.4); Lymphocytes % (auto) 10.6 % (10.0-50.0); Mean Corpuscular Hemoglobin 30.1 pg (28.0-32.0); Mean Corpuscular Hgb Conc. 34.2 g/dL (32.0-36.0); Monocytes % (auto) 9.7 % (0.0-12.0); Neutrophils # (auto) 8.2 10 ^3/uL (1.6-8.6); Neutrophils % (auto) 78.5 % (37.0-80.0); Red Blood Cells 3.77 10^6/uL (4.0-5.20); Red Cell Distribution Width 15.5 % (11.8-14.3); White Blood Cell 10.5 10^3/uL (4.4-10.8)
[2022-08-05 22:43] LABS: Albumin 3.1 g/dL (3.4-5.0); BUN/Creatinine Ratio 15.7; Calcium 8.1 mg/dL (8.5-10.1)
[2022-08-05 22:45] LABS: Bilirubin, Total 0.3 mg/dL (0.2-1.0); Total Protein 7.3 g/dL (6.4-8.2)
[2022-08-05 23:21] LABS: Urine Bacteria FEW /hpf (None Seen); Urine Blood 3+ /uL (Negative); Urine Mucus FEW (None Seen); Urine Specific Gravity 1.019 (1.001-1.035); Urine WBC 1629 /hpf (0 - 5); Urine WBC Clumps PRESENT /hpf (None Seen)
[2022-08-06] MEDS ORDERED: AZITHROMYCIN 250 MG TAB PO ONE (02:00)
[2022-08-06] MEDS ORDERED: cefTRIAXone 1GM/50ML D5W 50 ML IV ONE (02:00)
[2022-08-06] MEDS ORDERED: ACETAMINOPHEN 325 MG TAB PO PRN (03:00)
[2022-08-06] MEDS ORDERED: DOCUSATE SOD 100 MG CAP PO PRN (03:00)
[2022-08-06] MEDS ORDERED: ALBUMIN 25% 100 ML IV ONE (03:00)
[2022-08-06] MEDS ORDERED: HYDROcodone-ACET 5/325MG TAB PO PRN (03:00)
[2022-08-06] MEDS ORDERED: ONDANSETRON HCL 4 MG/2 ML VIAL IV PRN (03:00)
[2022-08-06] MEDS ORDERED: MORPHINE SULFATE INJ 2 MG/ml SYRG IV PRN (04:30)
[2022-08-06] MEDS ORDERED: NITROGLYCERIN 0.4 MG SL TAB SL PRN (04:30)
[2022-08-06] MEDS: SODIUM CHLOR 0.9% PF (SALINE LOCK) 10ML VIAL/SYR IV SCH ×3 (06:00→23:52)
[2022-08-06 06:32] LABS: Chloride 109 mmol/L (98-107); Potassium 4.6 mmol/L (3.5-5.1); Sodium 134 mmol/L (136-145)
[2022-08-06 06:40] LABS: Albumin 2.7 g/dL (3.4-5.0); Anion Gap 9 (5-15); BUN/Creatinine Ratio 17.2; Blood Urea Nitrogen 16 mg/dL (7-18); Calcium 8.4 mg/dL (8.5-10.1); Carbon Dioxide 16 mmol/L (21-32); GFR African American 74 mL/min; GFR Non-African American 61 mL/min; Glucose 90 mg/dL (74-106)
[2022-08-06 06:56] LABS: Alanine Aminotransferase 27 U/L (13-56); Alkaline Phosphatase 78 U/L (45-117); Aspartate Aminotransferase 39 U/L (15-37); Bilirubin, Total 0.3 mg/dL (0.2-1.0); Total Protein 7.4 g/dL (6.4-8.2)
[2022-08-06 07:44] LABS: Basophils # (auto) 0 10 ^3/uL (0-0.2); Basophils % (auto) 0.4 % (0.0-2.0); Eosinophils # (auto) 0 10 ^3/uL (0-0.8); Eosinophils % (auto) 0.2 % (0.0-7.0); Hematocrit 28.9 % (36.0-46.0); Hemoglobin 9.8 g/dL (12.2-16.2); Lymphocytes # (auto) 1.2 10 ^3/uL (0.4-5.4); Lymphocytes % (auto) 11.5 % (10.0-50.0); Mean Corpuscular Volume 88.3 fL (80.0-100.0); Monocytes # (auto) 1.3 10 ^3/uL (0-1.3); Monocytes % (auto) 12.5 % (0.0-12.0); Neutrophils # (auto) 7.7 10 ^3/uL (1.6-8.6); Neutrophils % (auto) 75.4 % (37.0-80.0); Red Blood Cells 3.27 10^6/uL (4.0-5.20); Red Cell Distribution Width 15.3 % (11.8-14.3); White Blood Cell 10.2 10^3/uL (4.4-10.8)
[2022-08-06] MEDS: ASPirin 81 mg TAB PO SCH (11:51)
[2022-08-06] MEDS: FUROSEMIDE 20 MG/2 ML VIAL IV SCH (11:51)
[2022-08-06] MEDS: FAMOTIDINE (10MG/ML) 2ML VL IV SCH ×2 (11:51→21:35)
[2022-08-06] MEDS: CLOPIDOGREL BISULFATE 75 MG TAB PO SCH (11:52)
[2022-08-06] MEDS: cefTRIAXone 1GM/50ML D5W 50 ML IV SCH (21:35)
[2022-08-06] MEDS: AZITHROMYCIN 500MG/ 250ML 250 ML IV SCH (23:45)
[2022-08-07] MEDS: SODIUM CHLOR 0.9% PF (SALINE LOCK) 10ML VIAL/SYR IV SCH ×3 (07:00→21:13)
[2022-08-07 07:25] LABS: Basophils # (auto) 0.1 10 ^3/uL (0-0.2); Basophils % (auto) 1.1 % (0.0-2.0); Eosinophils # (auto) 0.1 10 ^3/uL (0-0.8); Hematocrit 31.6 % (36.0-46.0); Hemoglobin 10.6 g/dL (12.2-16.2); Lymphocytes # (auto) 1.3 10 ^3/uL (0.4-5.4); Lymphocytes % (auto) 23.6 % (10.0-50.0); Mean Corpuscular Hemoglobin 29.8 pg (28.0-32.0); Mean Corpuscular Hgb Conc. 33.4 g/dL (32.0-36.0); Mean Corpuscular Volume 89.4 fL (80.0-100.0); Monocytes # (auto) 0.5 10 ^3/uL (0-1.3); Monocytes % (auto) 9.4 % (0.0-12.0); Neutrophils # (auto) 3.5 10 ^3/uL (1.6-8.6); Neutrophils % (auto) 63.9 % (37.0-80.0); Nucleated Red Blood Cells % 0.2 %; Red Blood Cells 3.54 10^6/uL (4.0-5.20); Red Cell Distribution Width 15.2 % (11.8-14.3); White Blood Cell 5.5 10^3/uL (4.4-10.8)
[2022-08-07 07:40] LABS: Albumin 2.9 g/dL (3.4-5.0); Calcium 8.4 mg/dL (8.5-10.1); Potassium 4.4 mmol/L (3.5-5.1)
[2022-08-07 07:44] LABS: BUN/Creatinine Ratio 19.3; Bilirubin, Total 0.2 mg/dL (0.2-1.0); Total Protein 6.8 g/dL (6.4-8.2)
[2022-08-07] MEDS ORDERED: ERGOCALCIFEROL 50,000 UNIT(1.25MG) CAP PO SCH (10:00)
[2022-08-07] MEDS: CLOPIDOGREL BISULFATE 75 MG TAB PO SCH (10:23)
[2022-08-07] MEDS: ASPirin 81 mg TAB PO SCH (10:23)
[2022-08-07] MEDS: ENOXAPARIN SOD 40 MG/0.4 ML SYRINGE SC SCH (10:24)
[2022-08-07] MEDS: FAMOTIDINE (10MG/ML) 2ML VL IV SCH ×2 (10:24→21:13)
[2022-08-07] MEDS: FUROSEMIDE 20 MG/2 ML VIAL IV SCH (10:24)
[2022-08-07 11:15] VITALS: BP_SYST 108; BP_SYST 113; BP_DIAS 51; BP_DIAS 53
[2022-08-07 13:00] VITALS: BP 106/64
[2022-08-07 17:00] VITALS: BP 94/42
[2022-08-07] MEDS: cefTRIAXone 1GM/50ML D5W 50 ML IV SCH (21:13)
[2022-08-07] MEDS: AZITHROMYCIN 500MG/ 250ML 250 ML IV SCH (21:14)
[2022-08-07 22:00] VITALS: BP 112/65
[2022-08-08 05:34] VITALS: BP 121/50
[2022-08-08] MEDS: AZITHROMYCIN 500MG/ 250ML 250 ML IV SCH (06:56)
[2022-08-08] MEDS: SODIUM CHLOR 0.9% PF (SALINE LOCK) 10ML VIAL/SYR IV SCH (06:57)
[2022-08-08 07:38] VITALS: BP 132/51
[2022-08-08 09:00] VITALS: BP 132/51
[2022-08-08] MEDS ORDERED: LEVO500T31 PO (09:42)
[2022-08-08] MEDS ORDERED: ERGO1CAP23 PO (09:42)
[2022-08-08] MEDS: CLOPIDOGREL BISULFATE 75 MG TAB PO SCH (09:58)
[2022-08-08] MEDS: ASPirin 81 mg TAB PO SCH (09:58)
[2022-08-08] MEDS: FUROSEMIDE 20 MG/2 ML VIAL IV SCH (09:58)
[2022-08-08] MEDS: ENOXAPARIN SOD 40 MG/0.4 ML SYRINGE SC SCH (09:59)
[2022-08-08] MEDS: FAMOTIDINE (10MG/ML) 2ML VL IV SCH (09:59)
[2022-08-08 10:20] VITALS: BP 109/49
== END 2022-08-08 11:08 | disposition home or self-care (01) | DRG 689 ==
LOC: ER 20:56 → OVERFLOW 08-06 04:21 → CENTRAL 08-07 11:22
PROVIDERS: ADMIT Nurse Practitioner Family; ATTEND Internal Medicine
DX: N30.00 Acute cystitis without hematuria (principal); I50.23 Acute on chronic systolic (congestive) heart failure; J18.9 Pneumonia, unspecified organism; E44.0 Moderate protein-calorie malnutrition; I11.0 Hypertensive heart disease with heart failure; I25.10 Atherosclerotic heart disease of native coronary artery without angina pectoris; E55.9 Vitamin D deficiency, unspecified; Z68.21 Body mass index [BMI] 21.0-21.9, adult; Z86.73 Personal history of transient ischemic attack (TIA), and cerebral infarction without residual deficits; Z95.1 Presence of aortocoronary bypass graft; R73.03 Prediabetes; Z83.3 Family history of diabetes mellitus
CPT/HCPCS: 36415; 71045; 80053; 81001; 82306; 83036; 83880; 84443; 84484; 85025; 87086; 87088; 87186; 87426; 93005; 96365; 96367; G0378; J0696; J3490; P9047

== ENCOUNTER → 2023-06-10 | Outpatient (CLI) | payer MEDICARE, OTHER ==
[~2023-06-10] MED LIST changes: -ACET-1156 PO; +ACET-1881 PO; -CEPH-322 PO; +ERGO1CAP23 PO; +LEVO500T31 PO; -NITR-52 PO
== END | disposition home or self-care (01) ==
LOC: Rad HDHVI 09:59
PROVIDERS: ATTEND Internal Medicine Cardiovascular Disease
DX: R06.02 Shortness of breath (principal); I10 Essential (primary) hypertension
CPT/HCPCS: 93306

== ENCOUNTER → 2023-06-13 | Outpatient (CLI) | payer MEDICARE, OTHER ==
[~2023-06-13] VITALS: Ht 157.5 cm; Wt 52.2 kg
[~2023-06-13] MED LIST changes: +ADENOSINE 44 MG in GIVE UN-DILUTED 0 ML IV ONE; +ADENOSINE 90 MG/30 ML INJ IV ONE
== END | disposition home or self-care (01) ==
LOC: Rad HDHVI 08:51
PROVIDERS: ATTEND Internal Medicine Cardiovascular Disease
DX: I11.0 Hypertensive heart disease with heart failure (principal); I50.43 Acute on chronic combined systolic (congestive) and diastolic (congestive) heart failure; I25.10 Atherosclerotic heart disease of native coronary artery without angina pectoris; I10 Essential (primary) hypertension; I25.709 Atherosclerosis of coronary artery bypass graft(s), unspecified, with unspecified angina pectoris; F17.210 Nicotine dependence, cigarettes, uncomplicated; I25.2 Old myocardial infarction; R07.89 Other chest pain; I25.5 Ischemic cardiomyopathy; Z82.49 Family history of ischemic heart disease and other diseases of the circulatory system; Z95.1 Presence of aortocoronary bypass graft
CPT/HCPCS: 78452; 93005; 96374; 96375; A9500; J0153

== ENCOUNTER → 2024-07-23 | Outpatient (CLI) | payer MEDICARE, OTHER ==
[~2024-07-23] MED LIST changes: -ADENOSINE 44 MG in GIVE UN-DILUTED 0 ML IV ONE; -ADENOSINE 90 MG/30 ML INJ IV ONE; +BIOT50007 PO; +CIPR-173 PO; +CYAN1TAB11 PO; +FURO20TA4 PO; +MAGN100T9 PO; +POTA-36 PO; -POTA10TA51 PO; +POTA1TAB4 PO; +RIVA2.5T PO; +ZINC50TA7 PO
[2024-07-23 11:58] VITALS: BP 139/64; PULSE 71; RESP 16; O2SAT 98
[2024-07-23 12:15] VITALS: BP 143/66; PULSE 67; RESP 16; O2SAT 98
== END | disposition home or self-care (01) ==
LOC: Rad HDHVI 11:46
PROVIDERS: ATTEND Internal Medicine Cardiovascular Disease
DX: Z01.811 Encounter for preprocedural respiratory examination (principal); I65.21 Occlusion and stenosis of right carotid artery; I73.9 Peripheral vascular disease, unspecified; R06.02 Shortness of breath
CPT/HCPCS: 71046; 93005; G0463

== ENCOUNTER 2024-07-26 06:42 | Inpatient (IN) | payer MEDICARE, OTHER ==
[2024-07-23 14:09] LABS: Basophils # (auto) 0.1 10 ^3/uL (0-0.2); Basophils % (auto) 0.8 % (0.0-2.0); Chloride 106 mmol/L (98-107); Eosinophils # (auto) 0.3 10 ^3/uL (0-0.8); Eosinophils % (auto) 4.4 % (0.0-7.0); Hematocrit 31.9 % (36.0-46.0); Hemoglobin 10.8 g/dL (12.2-16.2); Lymphocytes % (auto) 27.8 % (10.0-50.0); Mean Corpuscular Hemoglobin 29.5 pg (28.0-32.0); Mean Corpuscular Hgb Conc. 33.9 g/dL (32.0-36.0); Monocytes # (auto) 1.1 10 ^3/uL (0-1.3); Monocytes % (auto) 14.7 % (0.0-12.0); Neutrophils # (auto) 3.8 10 ^3/uL (1.6-8.6); Neutrophils % (auto) 52.3 % (37.0-80.0); Nucleated Red Blood Cells % 0.1 %; Platelet Count (auto) 389 10^3/uL (140-450); Red Blood Cells 3.67 10^6/uL (4.0-5.20); Red Cell Distribution Width 15.8 % (11.8-14.3); Sodium 132 mmol/L (136-145); White Blood Cell 7.2 10^3/uL (4.4-10.8)
[2024-07-23 14:10] LABS: Anion Gap 3 (5-15); Calcium 9.6 mg/dL (8.7-10.4); Carbon Dioxide 23 mmol/L (20-31)
[2024-07-23 14:15] LABS: BUN/Creatinine Ratio 22.1 (10.0-20.0); Blood Urea Nitrogen 23 mg/dL (9-23); Glucose 97 mg/dL (74-106)
[2024-07-23 14:26] LABS: INR 1.07 (0.9-1.15); Partial Thromboplastin Time 32.3 SEC (24.5-34.5); Prothrombin Time 11.3 sec (9.3-11.8)
[2024-07-26] VITALS (19 sets, daily range): BP systolic 84–130; BP diastolic 38–62; PULSE 44–75; RESP 12–18; TEMP 97.4–97.6; O2SAT 93–99
[~2024-07-26] VITALS: Ht 157.5 cm; Wt 58.6 kg
[~2024-07-26 06:42] MED LIST changes: -ASPI-543 PO; -CIPR-173 PO; -CLOP75TA28 PO; -LEVO500T31 PO; -POTA-36 PO; -SPIR25TA8 PO; -TORS20TA20 PO
[2024-07-26] MEDS: IODIXANOL 320MG/ML 100ML BTL IV ONE (07:43)
[2024-07-26] MEDS: GLYCOPYRROLATE 0.2 MG/ML 1ML VIAL ONE ×2 (08:31→10:00)
[2024-07-26] MEDS: fentaNYL CITRATE 100 MCG/2 ML VL ONE (08:31)
[2024-07-26] MEDS: MIDAZOLAM HCL 2MG/2ML 2ml VIAL (1mg/ml) ONE (08:32)
[2024-07-26] MEDS: LIDOCAINE 2%HCL (LOCAL ANESTH.) INJ 20ML MDV ONE (08:34)
[2024-07-26] MEDS: PHENYLEPHRINE HCL 10 MG/ML VL ONE (08:37)
[2024-07-26] MEDS: ANGIOMAX 250 MG VIAL IV ONE (09:47)
[2024-07-26] MEDS: NOREPINEPHRINE 8 MG/250ML KIT 0 ML IV ONE (10:05)
[2024-07-26] MEDS: DOPamine 1600MCG/ML D5W 250 ML IV ONE (10:05)
[2024-07-26] MEDS: CLOPIDOGREL BISULFATE 75 MG TAB ONE (10:12)
[2024-07-26] MEDS ORDERED: MORPHINE SULFATE INJ 2 MG/ml SYRG IV PRN (11:15)
[2024-07-26] MEDS ORDERED: NITROGLYCERIN 0.4 MG SL TAB SL PRN (11:15)
[2024-07-26] MEDS ORDERED: ACETAMINOPHEN 325 MG TAB PO PRN (12:45)
[2024-07-26] MEDS: ERGOCALCIFEROL 50,000 UNIT(1.25MG) CAP PO SCH (18:37)
[2024-07-26] MEDS: DOPamine 1600MCG/ML D5W 250 ML IV SCH (20:26)
[2024-07-27 05:00] VITALS: BP 138/47; PULSE 64; RESP 19; TEMP 97.3; O2SAT 97
[2024-07-27 07:26] LABS: Chloride 107 mmol/L (98-107); Potassium 3.8 mmol/L (3.5-5.1); Sodium 135 mmol/L (136-145)
[2024-07-27 07:27] LABS: Anion Gap 6 (5-15); Calcium 9.1 mg/dL (8.7-10.4); Carbon Dioxide 22 mmol/L (20-31)
[2024-07-27 07:32] LABS: BUN/Creatinine Ratio 18.9 (10.0-20.0); Blood Urea Nitrogen 17 mg/dL (9-23); Glucose 90 mg/dL (74-106)
[2024-07-27 08:00] VITALS: RESP 18
[2024-07-27 09:00] VITALS: BP 95/49; PULSE 62; RESP 18; TEMP 97.5; O2SAT 98
[2024-07-27] MEDS: SACUBITRIL-VALSARTAN 24mg/26mg TAB PO SCH (09:36)
[2024-07-27] MEDS: ASCORBIC ACID 500 MG TAB PO SCH (09:37)
[2024-07-27] MEDS: CLOPIDOGREL BISULFATE 75 MG TAB PO SCH (09:37)
[2024-07-27] MEDS: FUROSEMIDE 20 MG TAB PO SCH (09:39)
[2024-07-27] MEDS ORDERED: POTASSIUM CHLORIDE PO SCH (10:00)
[2024-07-27 13:04] VITALS: BP 98/45; PULSE 67; RESP 16; TEMP 97.5; O2SAT 95
[2024-07-27 17:00] VITALS: BP 97/44; PULSE 66; RESP 18; TEMP 97.9; O2SAT 97
== END 2024-07-27 17:00 | disposition home or self-care (01) | DRG 27 ==
LOC: CATH 06:42 → TELE 11:15 → TELE-WESTW 16:16
PROVIDERS: ADMIT Internal Medicine Cardiovascular Disease; ATTEND Internal Medicine Cardiovascular Disease
PROC: 03CJ3ZZ Extirpation of Matter from Left Common Carotid Artery, Percutaneous Approach (ICD-10-PCS; principal; 2024-07-26)
PROC: 037J3DZ Dilation of Left Common Carotid Artery with Intraluminal Device, Percutaneous Approach (ICD-10-PCS; 2024-07-26)
PROC: B41G1ZZ Fluoroscopy of Left Lower Extremity Arteries using Low Osmolar Contrast (ICD-10-PCS; 2024-07-26)
PROC: B41F1ZZ Fluoroscopy of Right Lower Extremity Arteries using Low Osmolar Contrast (ICD-10-PCS; 2024-07-26)
PROC: B3151ZZ Fluoroscopy of Bilateral Common Carotid Arteries using Low Osmolar Contrast (ICD-10-PCS; 2024-07-26)
DX: I65.22 Occlusion and stenosis of left carotid artery (principal); I73.9 Peripheral vascular disease, unspecified; I95.9 Hypotension, unspecified; R00.1 Bradycardia, unspecified; Z86.73 Personal history of transient ischemic attack (TIA), and cerebral infarction without residual deficits; Z82.49 Family history of ischemic heart disease and other diseases of the circulatory system; Z95.1 Presence of aortocoronary bypass graft; Z87.891 Personal history of nicotine dependence
CPT/HCPCS: 36223; 36415; 37215; 71046; 75716; 80048; 85025; 85610; 85730; 93005; 99152; G0378; G0463; J2250; Q9967

== ENCOUNTER → 2024-12-20 | Outpatient (CLI) | payer MEDICARE, OTHER | END | disposition home or self-care (01) | LOC: Rad HDHVI 09:46 | PROVIDERS: ATTEND Internal Medicine Cardiovascular Disease | DX: I08.1 Rheumatic disorders of both mitral and tricuspid valves (principal); I11.0 Hypertensive heart disease with heart failure; I50.9 Heart failure, unspecified | CPT/HCPCS: 93306 ==

== ENCOUNTER → 2024-12-24 | Outpatient (CLI) | payer MEDICARE, OTHER | END | disposition home or self-care (01) | LOC: Rad HDHVI 09:48 | PROVIDERS: ATTEND Internal Medicine Cardiovascular Disease | DX: I65.22 Occlusion and stenosis of left carotid artery (principal); I11.0 Hypertensive heart disease with heart failure; I50.9 Heart failure, unspecified | CPT/HCPCS: 93880 ==

== ENCOUNTER → 2024-12-31 | Outpatient (CLI) | payer MEDICARE, OTHER ==
[~2024-12-31] VITALS: Ht 157.5 cm; Wt 52.6 kg
[~2024-12-31] MED LIST changes: +ADENOSINE 44 MG in GIVE UN-DILUTED 0 ML IV ONE; +ADENOSINE 90 MG/30 ML INJ IV ONE
== END | disposition home or self-care (01) ==
LOC: Rad HDHVI 09:26
PROVIDERS: ATTEND Internal Medicine Cardiovascular Disease
DX: I44.0 Atrioventricular block, first degree (principal); I49.1 Atrial premature depolarization; I49.3 Ventricular premature depolarization; I45.10 Unspecified right bundle-branch block; I11.0 Hypertensive heart disease with heart failure; I50.33 Acute on chronic diastolic (congestive) heart failure; I25.10 Atherosclerotic heart disease of native coronary artery without angina pectoris; I48.91 Unspecified atrial fibrillation; I25.5 Ischemic cardiomyopathy; I70.90 Unspecified atherosclerosis; I25.2 Old myocardial infarction; E78.00 Pure hypercholesterolemia, unspecified; I42.0 Dilated cardiomyopathy; R73.03 Prediabetes; R07.89 Other chest pain; Z95.1 Presence of aortocoronary bypass graft; Z82.49 Family history of ischemic heart disease and other diseases of the circulatory system
CPT/HCPCS: 78452; 93005; A9500; J0153; 96374; 96375

== ENCOUNTER 2025-05-29 09:00 | Outpatient (CLI) | payer MEDICARE, OTHER ==
[~2025-05-29 09:00] MED LIST changes: -ADENOSINE 44 MG in GIVE UN-DILUTED 0 ML IV ONE; -ADENOSINE 90 MG/30 ML INJ IV ONE
[2025-05-29 09:15] VITALS: BP 159/70; PULSE 64; RESP 16; O2SAT 97
[2025-05-29 09:30] VITALS: BP 167/72; PULSE 65; RESP 16; O2SAT 97
== END 2025-05-29 17:00 | disposition home or self-care (01) ==
LOC: CHF HDHVI 09:00
PROVIDERS: ATTEND Internal Medicine Cardiovascular Disease
DX: R06.02 Shortness of breath (principal); R07.9 Chest pain, unspecified
CPT/HCPCS: 93005; G0463